=== PATIENT | female | born 1985 | race Caucasian/White ===

== ENCOUNTER 2016-05-15 19:18 | Inpatient (IN) | payer BC ==
[2016-05-15 20:43] LABS: CHLORIDE,CL 104 mmol/L (98-110); SODIUM,NA 134 mmol/L (136-146)
[2016-05-15] MEDS ORDERED: Sodium Chloride 0.9% 10 ML Syringe FLUSH PRN (20:51)
[2016-05-15] MEDS ORDERED: Lidocaine 1% 50 ML MDV INJECT PRN (20:51)
[2016-05-15] MEDS ORDERED: Nalbuphine 10 MG/1 ML Vial IVPUSH PRN (20:51)
[2016-05-15] MEDS ORDERED: Sodium Chloride 0.9% 2.5 ML Syringe FLUSH PRN (20:51)
[2016-05-15] MEDS ORDERED: Water For Irrigation,Sterile 1,000 ML Container IRR PRN (20:51)
[2016-05-15] MEDS ORDERED: Carboprost Tromethamine 250 MCG/1 ML Amp IM PRN (20:51)
[2016-05-15] MEDS ORDERED: Butorphanol 1 MG/ML SDV IVPUSH PRN (20:51)
[2016-05-15] MEDS ORDERED: Misoprostol 200 MCG Tab PO PRN (20:51)
[2016-05-15] MEDS ORDERED: Methylergonovine 0.2 MG/1 ML Amp IM PRN (20:51)
[2016-05-15] MEDS ORDERED: Oxytocin/Lactated Ringers 30 UNIT/500 ML BAG IV SCH (21:00)
[2016-05-15] MEDS ORDERED: Lactated Ringers 1,000 ML IV SCH (21:00)
[2016-05-15] MEDS: Acetaminophen 325 MG Tab PO PRN (21:40)
[2016-05-15] MEDS: Betamethasone Acetate/Betamethasone Sod Phosphate 30 MG/5 ML MDV IM SCH (21:50)
[2016-05-15] MEDS: hydrOXYzine Pamoate 25 MG Cap PO PRN (22:36)
[2016-05-15] MEDS: Pantoprazole 40 MG Tab.CR PO SCH (22:36)
--- NOTE | 2016-05-15 22:59 | HP ---
DATE OF : 1985 PRIMARY CARE PHYSICIAN: None PCP CHIEF COMPLAINT: Preeclampsia. HISTORY: This is a 31-year-old female. She is G1, P0. She is currently at 35 and 5/7th weeks' gestation with a diamniotic dichorionic twin gestation conceived on Clomid. She has been followed for preeclampsia over the past week. Her most recent 24-hour urine was in the 1200 range with otherwise normal laboratory studies. She has had worsening itching and the bile salts are still pending. She has been on home management, however, today she noted increased swelling. She feels that the left side of her face is more swollen. In general, she feels malaise. She denies a severe headache. She "just does not feel right." She reports positive movement for both fetuses. She denies any regular contractions. She has had some mild visual changes mainly with standing. No right upper quadrant or epigastric pain. PAST MEDICAL HISTORY: Significant for diagnosis of hypertension, however, she has never been on medications. SURGICAL HISTORY: None. ALLERGIES: None known. MEDICATIONS: vitamins and Tums. SOCIAL HISTORY: She is . Sexually active. Denies use of tobacco, alcohol, or street drugs. OB HISTORY: Significant for infertility. She conceived on Clomid. EDC is 06/14/2016 by a sure LMP consistent with a first trimester ultrasound. She has been followed with serial laboratory studies, serial 24-hour urine as well as biophysical profiles and regular ultrasounds to assess growth. REVIEW OF SYSTEMS: Negative for shortness of breath or chest pain. Positive for gastroesophageal reflux. Otherwise negative GI, negative derm, negative psychiatric, negative musculoskeletal except usual complaints of . Neurologic is positive for some minor visual changes, otherwise negative. PHYSICAL EXAMINATION: VITAL SIGNS: Temperature is 97.9. Blood pressure ranges systolic 137 to 156 over diastolic of 83 to 110. Pulse is 78. heart tones, baby A is 130, with moderate variability with accelerations of 15 beats per minute; baby B is 135, with moderate variability, accelerations of 15 beats per minute. [place] shows mild uterine irritability. No regular contractions. GENERAL: She is alert and oriented. She is in no acute distress. She does have some asymmetric swelling on her face, being greater on the left than the right. LUNGS: Clear bilaterally. CARDIOVASCULAR: Regular rate without murmur. ABDOMEN: Soft, gravid, nontender. There is no epigastric tenderness. She has active bowel sounds. She has no CVA tenderness. EXTREMITIES: 2+ edema bilaterally. Deep tendon reflexes are 3+ with absence of clonus. GENITOURINARY: Vaginal exam; cervix is fingertip thick and minus 1. ASSESSMENT AND PLAN: A 35 and 5/7th week intrauterine . Dichorionic diamniotic twin gestation. Mild preeclampsia. Due to visual changes and increased swelling, we will admit for inpatient observation with serial 24-hour urine, serial preeclamptic labs. At the onset of any sign of severe preeclampsia, we would proceed with delivery which at this time would be by delivery due to breech presentation of fetus A. We will proceed with monitoring daily biophysical profiles as well as an ultrasound as she is due for a growth ultrasound this week. I discussed risks and benefits of late steroids with the risks primarily being elevating the glucose level as well as maternal mood side effects with a small benefit in reduction of respiratory distress. Understanding these risks and benefits, she does desire to proceed with betamethasone for lung maturity. I will discuss plan of care with Dr. Will who comes on tomorrow morning. As long as there is no evidence of severe preeclampsia based on blood pressure readings or laboratory studies, we will continue with expectant management at this point. YAMIL / LIONEL /[id number]
[2016-05-16] MEDS: Prenatal Multivitamin and Multimineral with Iron Tab PO SCH (09:13)
[2016-05-16] MEDS: Pantoprazole 40 MG Tab.CR PO SCH (09:13)
[2016-05-16] MEDS: Betamethasone Acetate/Betamethasone Sod Phosphate 30 MG/5 ML MDV IM SCH (22:19)
[2016-05-16] MEDS: Acetaminophen 325 MG Tab PO PRN (22:19)
[2016-05-16] MEDS: hydrOXYzine Pamoate 25 MG Cap PO PRN (22:24)
[2016-05-17 09:22] LABS: CHLORIDE,CL 107 mmol/L (98-110); SODIUM,NA 136 mmol/L (136-146)
[2016-05-17] MEDS ORDERED: Sodium Chloride 0.9% 10 ML Syringe FLUSH PRN ×2 (10:02→13:38)
[2016-05-17] MEDS ORDERED: Sodium Chloride 0.9% 2.5 ML Syringe FLUSH PRN ×2 (10:02→13:38)
[2016-05-17] MEDS ORDERED: ceFAZolin 2 GM in Premix Bag 1 BAG IV ONE (10:02)
[2016-05-17] MEDS: Prenatal Multivitamin and Multimineral with Iron Tab PO SCH (10:05)
[2016-05-17] MEDS: Pantoprazole 40 MG Tab.CR PO SCH (10:06)
[2016-05-17] MEDS ORDERED: Citric Acid/Sodium Citrate Solution 30 ML Cup PO SCH (10:15)
[2016-05-17] MEDS ORDERED: Lactated Ringers 1,000 ML IV SCH ×2 (10:15→15:00)
[2016-05-17] MEDS ORDERED: Oxytocin 10 Units/1 ML SDV ONE (10:51)
[2016-05-17] MEDS ORDERED: Ondansetron 4 MG/2 ML SDV ONE (10:51)
[2016-05-17] MEDS ORDERED: Phenylephrine 1% 10 MG/ML SDV ONE (10:51)
[2016-05-17] MEDS ORDERED: Morphine PF 10 MG/10 ML SDV ONE (10:52)
--- NOTE | 2016-05-17 11:02 | PCM.PREANE ---
Preanesthetic Assessment - Anesthesia/Transfusion/Family Hx Anesthesia History: Prior Anesthesia Without Reaction Family History of Anesthesia Reaction: No Transfusion History: No Prior Transfusion(s) Additional History: 31yo F, 36 week gestation, twin , elevated urinary protein x 2 weeks, admitted yest for 24 hr urinary protein collection and BP monitoring. BP labile , now 137/77. Pt reports high of 143/88 in the last 24 hr. Meds: only vits. NKDA. Has hx of non-gestational hypertension, but has not needed meds for BP controll in the last year. 5' 6" , 255# (pre preg weight 182 #), non smoker. PSH=ORIF nasal fracture, FH=no anesthetic problems. Plan: spinal with duramorph, Magnesium gtt will be started post delivery of infants. Bicitra and Ancef are ordered to be given prior to the C section. questions answered, consent obtained. - Review of Systems General: No Symptoms Pulmonary: No Symptoms Cardiovascular: No Symptoms Gastrointestinal: No symptoms Neurological: No Symptoms Other: Reports: None - Physical Assessment Height: 1.68 m Weight: 106 kg ASA Class: 3 Mental Status: Alert & Oriented x3 Airway Class: Mallampati = 2 Dentition: Reports: Normal Dentition Lungs: Clear to auscultation, Normal respiratory effort Cardiovascular: Regular Rate, Regular Rhythm - Lab Values: Laboratory Last Values WBC 10.32 K/uL (4.0-11.0) 05/17/16 08:49 RBC 4.02 M/uL (4.30-5.90) L 05/17/16 08:49 Hgb 11.5 g/dL (12.0-16.0) L 05/17/16 08:49 Hct 34.7 % (36.0-46.0) L 05/17/16 08:49 MCV 86.3 fL (80.0-98.0) 05/17/16 08:49 MCH 28.6 pg (27.0-32.0) 05/17/16 08:49 MCHC 33.1 g/dL (31.0-37.0) 05/17/16 08:49 RDW Std Deviation 44.4 fl (28.0-62.0) 05/17/16 08:49 RDW Coeff of Dyllan 14 % (11.0-15.0) 03 08:49 Plt Count 185 K/uL (150-400) 05/17/16 08:49 MPV 13.00 fL (7.40-12.00) H 05/17/16 08:49 Neut % (Auto) 86.2 % (48.0-80.0) H 05/17/16 08:49 Lymph % (Auto) 7.8 % (16.0-40.0) L 05/17/16 08:49 Ross % (Auto) 6.0 % (0.0-15.0) 05/17/16 08:49 Eos % (Auto) 0.0 % (0.0-7.0) 05/17/16 08:49 Baso % (Auto) 0.0 % (0.0-1.5) 05/17/16 08:49 Neut # 8.9 K/uL (1.4-5.7) H 05/17/16 08:49 Lymph # 0.8 K/uL (0.6-2.4) 05/17/16 08:49 Ross # 0.6 K/uL (0.0-0.8) 05/17/16 08:49 Eos # 0.0 K/uL (0.0-0.7) 05/17/16 08:49 Baso # 0.0 K/uL (0.0-0.1) 05/17/16 08:49 Nucleated RBC % 0.0 /100WBC 05/17/16 08:49 Nucleated RBCs # 0 K/uL 05/17/16 08:49 Sodium 136 mmol/L (136-146) 05/17/16 08:49 Potassium 4.3 mmol/L (3.5-5.1) 05/17/16 08:49 Chloride 107 mmol/L (98-110) 05/17/16 08:49 Carbon Dioxide 18 mmol/L (21-31) L 05/17/16 08:49 BUN 16 mg/dL (6.0-23.0) 05/17/16 08:49 Creatinine 0.7 mg/dL (0.6-1.5) 05/17/16 08:49 Est Cr Clr Drug Dosing 109.61 mL/min 05/17/16 08:49 Estimated GFR (MDRD) > 60.0 ml/min 05/17/16 08:49 Glucose 100 mg/dL (60-110) 05/17/16 08:49 Uric Acid 6.3 mg/dL (2.1-6.2) H 05/16/16 05:10 Calcium 8.7 mg/dL (8.8-10.8) L 05/17/16 08:49 Total Bilirubin 0.3 mg/dL (0.1-1.5) 05/17/16 08:49 AST 55 IU/L (5-40) H 05/17/16 08:49 ALT 69 IU/L (8-54) H 05/17/16 08:49 Alkaline Phosphatase 192 (40-150) H 05/17/16 08:49 Lactate Dehydrogenase 198 IU/L (125-220) 05/16/16 05:10 Total Protein 6.0 g/dL (6.0-8.0) 05/17/16 08:49 Albumin 2.7 g/dL (3.5-5.0) L 05/17/16 08:49 Globulin 3.3 g/dL (2.0-3.5) 05/17/16 08:49 Albumin/Globulin Ratio 0.8 (1.3-2.8) L 05/17/16 08:49 Urine Color YELLOW 05/15/16 19:45 Urine Appearance SLT CLOUDY 05/15/16 19:45 Urine pH 7.0 (5.0-8.0) 05/15/16 19:45 Ur Specific [place] 1.010 (1.001-1.035) 05/15/16 19:45 Urine Protein 100 mg/dL (NEGATIVE) 05/15/16 19:45 Urine Glucose (UA) NEGATIVE mg/dL (NEGATIVE) 05/15/16 19:45 Urine Ketones NEGATIVE mg/dL (NEGATIVE) 05/15/16 19:45 Urine Occult Blood TRACE-INTACT (NEGATIVE) 05/15/16 19:45 Urine Nitrite NEGATIVE (NEGATIVE) 05/15/16 19:45 Urine Bilirubin NEGATIVE (NEGATIVE) 05/15/16 19:45 Urine Urobilinogen 0.2 EU/dL (<2.0) 05/15/16 19:45 Ur Leukocyte Esterase SMALL (NEGATIVE) 05/15/16 19:45 Ur Collection Duration 24 05/16/16 21:30 Urine Total Volume 1600 (800-1800) 05/16/16 21:30 Ur Total Protein Conc 233.5 mg/dL (0-14) H 05/16/16 21:30 Ur Total Protein 24 Hr 3736.0 mg/24HRS 05/16/16 21:30 Blood Type O POSITIVE 05/15/16 20:12 Antibody Screen NEGATIVE 05/15/16 20:12 - Allergies Allergies/Adverse Reactions: Allergies Allergy/AdvReac Type Severity Reaction Status Date / Time No Known Allergies Allergy Verified 04/24/16 00:16 - Blood Blood Available: Yes - Anesthesia Plan Pre-Op Medication Ordered: Antacids (Bicitra) - Acknowledgements Anesthesia Type Planned: Spinal Pt an Appropriate Candidate for the Planned Anesthesia: Yes Alternatives and Risks of Anesthesia Discussed w Pt/Guardian: Yes Pt/Guardian Understands and Agrees with Anesthesia Plan: Yes PreAnesthesia Questionnaire HEENT History: Reports: Other (see below) Other HEENT History: Nearsighted Cardiovascular History: Reports: Hypertension Gastrointestinal History: Reports: Other (see below) Other Gastrointestinal History: heartburn 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 [No Known Home Meds] 04/24/16 [History] - CURRENT (IN HOUSE) MEDS Current Meds: Current Medications Citric Acid/Sodium Citrate (Bicitra Solution) 30 ml PO .ONCE ADINA Lactated Ringer's (Ringers, Lactated) 1,000 mls @ 500 mls/hr IV .BOLUS ADINA Sodium Chloride (Saline Flush) 10 ml FLUSH ASDIRECTED PRN PRN Reason: Keep Vein Open Sodium Chloride (Saline Flush) 2.5 ml FLUSH ASDIRECTED PRN PRN Reason: Keep Vein Open Discontinued Medications Acetaminophen (Tylenol) 650 mg PO Q4H PRN PRN Reason: mild pain and fever Last Admin: 05/16/16 22:19 Dose: 650 mg Betamethasone Acet/Betameth SodPhos ([place] Soluspan 6 Mg/Ml) 12 mg IM Q24H ADINA Stop: 05/16/16 21:01 Last Admin: 05/16/16 22:19 Dose: 12 mg Butorphanol Tartrate (Stadol) 1 mg IVPUSH Q1H PRN PRN Reason: Pain Carboprost Tromethamine (Hemabate Ds) 250 mcg IM ASDIRECTED PRN PRN Reason: Post Hemorrhage Hydroxyzine Pamoate (Vistaril) 25 mg PO BEDTIME PRN PRN Reason: Insomnia Last Admin: 05/16/16 22:24 Dose: 25 mg Lactated Ringer's (Ringers, Lactated) 1,000 mls @ 150 mls/hr IV ASDIRECTED ADINA Oxytocin/Lactated Ringer's (Pitocin In Lr 30 Units/500 Ml) 30 unit in 500 mls @ 999 mls/hr IV TITRATE ADINA; 999 MUNITS/MIN PRN Reason: Protocol Stop: 05/15/16 21:31 Cefazolin Sodium/Dextrose 2 gm (/ Premix) 50 mls @ 100 mls/hr IV ONETIME ONE Stop: 05/17/16 10:31 Lidocaine HCl (Xylocaine 1%) 50 ml INJECT .ONCE PRN PRN Reason: Laceration repair Methylergonovine Maleate (Methergine) 0.2 mg IM ASDIRECTED PRN PRN Reason: Post Hemorrhage Misoprostol (Cytotec) 200 mcg PO .ONCE PRN PRN Reason: Post Hemorrhage Nalbuphine HCl (Nubain) 10 mg IVPUSH Q1H PRN PRN Reason: Pain (severe 7-10) Stop: 05/15/16 22:52 Ondansetron HCl (Zofran) Confirm Administered Dose 4 mg .ROUTE .STK-MED ONE Stop: 05/17/16 10:52 Oxytocin (Pitocin) Confirm Administered Dose 20 unit .ROUTE .STK-MED ONE Stop: 05/17/16 10:52 Pantoprazole Sodium (Protonix) 40 mg PO DAILY [facility] Last Admin: 05/17/16 10:06 Dose: Not Given Phenylephrine HCl (Kd-Synephrine) Confirm Administered Dose 10 mg .ROUTE .STK- MED ONE Stop: 05/17/16 10:52 Prenat Multivit/[place]/Iron/Folic Ac ( Mtr) 1 each PO DAILY [facility] Last Admin: 05/17/16 10:05 Dose: Not Given Sodium Chloride (Saline Flush) 10 ml FLUSH ASDIRECTED PRN PRN Reason: Keep Vein Open Sodium Chloride (Saline Flush) 2.5 ml FLUSH ASDIRECTED PRN PRN Reason: Keep Vein Open Sterile Water (Sterile Water For Irrigation) 1,000 ml IRR ASDIRECTED PRN PRN Reason: delivery Preanesthetic Assessment - PHYSICAL ASSESSMENT Height: 1.68 m Weight: 106 kg - LAB Values: Laboratory Last Values WBC 10.32 K/uL (4.0-11.0) 05/17/16 08:49 RBC 4.02 M/uL (4.30-5.90) L 05/17/16 08:49 Hgb 11.5 g/dL (12.0-16.0) L 05/17/16 08:49 Hct 34.7 % (36.0-46.0) L 05/17/16 08:49 MCV 86.3 fL (80.0-98.0) 03 08:49 MCH 28.6 pg (27.0-32.0) 05/17/16 08:49 MCHC 33.1 g/dL (31.0-37.0) 05/17/16 08:49 RDW Std Deviation 44.4 fl (28.0-62.0) 05/17/16 08:49 RDW Coeff of Dyllan 14 % (11.0-15.0) 05/17/16 08:49 Plt Count 185 K/uL (150-400) 05/17/16 08:49 MPV 13.00 fL (7.40-12.00) H 05/17/16 08:49 Neut % (Auto) 86.2 % (48.0-80.0) H 05/17/16 08:49 Lymph % (Auto) 7.8 % (16.0-40.0) L 05/17/16 08:49 Ross % (Auto) 6.0 % (0.0-15.0) 05/17/16 08:49 Eos % (Auto) 0.0 % (0.0-7.0) 05/17/16 08:49 Baso % (Auto) 0.0 % (0.0-1.5) 05/17/16 08:49 Neut # 8.9 K/uL (1.4-5.7) H 05/17/16 08:49 Lymph # 0.8 K/uL (0.6-2.4) 05/17/16 08:49 Ross # 0.6 K/uL (0.0-0.8) 05/17/16 08:49 Eos # 0.0 K/uL (0.0-0.7) 05/17/16 08:49 Baso # 0.0 K/uL (0.0-0.1) 05/17/16 08:49 Nucleated RBC % 0.0 /100WBC 05/17/16 08:49 Nucleated RBCs # 0 K/uL 05/17/16 08:49 Sodium 136 mmol/L (136-146) 05/17/16 08:49 Potassium 4.3 mmol/L (3.5-5.1) 05/17/16 08:49 Chloride 107 mmol/L (98-110) 05/17/16 08:49 Carbon Dioxide 18 mmol/L (21-31) L 05/17/16 08:49 BUN 16 mg/dL (6.0-23.0) 05/17/16 08:49 Creatinine 0.7 mg/dL (0.6-1.5) 05/17/16 08:49 Est Cr Clr Drug Dosing 109.61 mL/min 05/17/16 08:49 Estimated GFR (MDRD) > 60.0 ml/min 05/17/16 08:49 Glucose 100 mg/dL (60-110) 05/17/16 08:49 Uric Acid 6.3 mg/dL (2.1-6.2) H 05/16/16 05:10 Calcium 8.7 mg/dL (8.8-10.8) L 05/17/16 08:49 Total Bilirubin 0.3 mg/dL (0.1-1.5) 05/17/16 08:49 AST 55 IU/L (5-40) H 05/17/16 08:49 ALT 69 IU/L (8-54) H 05/17/16 08:49 Alkaline Phosphatase 192 (40-150) H 05/17/16 08:49 Lactate Dehydrogenase 198 IU/L (125-220) 05/16/16 05:10 Total Protein 6.0 g/dL (6.0-8.0) 05/17/16 08:49 Albumin 2.7 g/dL (3.5-5.0) L 05/17/16 08:49 Globulin 3.3 g/dL (2.0-3.5) 05/17/16 08:49 Albumin/Globulin Ratio 0.8 (1.3-2.8) L 05/17/16 08:49 Urine Color YELLOW 05/15/16 19:45 Urine Appearance SLT CLOUDY 05/15/16 19:45 Urine pH 7.0 (5.0-8.0) 05/15/16 19:45 Ur Specific [place] 1.010 (1.001-1.035) 05/15/16 19:45 Urine Protein 100 mg/dL (NEGATIVE) 05/15/16 19:45 Urine Glucose (UA) NEGATIVE mg/dL (NEGATIVE) 05/15/16 19:45 Urine Ketones NEGATIVE mg/dL (NEGATIVE) 05/15/16 19:45 Urine Occult Blood TRACE-INTACT (NEGATIVE) 05/15/16 19:45 Urine Nitrite NEGATIVE (NEGATIVE) 05/15/16 19:45 Urine Bilirubin NEGATIVE (NEGATIVE) 05/15/16 19:45 Urine Urobilinogen 0.2 EU/dL (<2.0) 05/15/16 19:45 Ur Leukocyte Esterase SMALL (NEGATIVE) 05/15/16 19:45 Ur Collection Duration 24 05/16/16 21:30 Urine Total Volume 1600 (800-1800) 05/16/16 21:30 Ur Total Protein Conc 233.5 mg/dL (0-14) H 05/16/16 21:30 Ur Total Protein 24 Hr 3736.0 mg/24HRS 05/16/16 21:30 Blood Type O POSITIVE 05/15/16 20:12 Antibody Screen NEGATIVE 05/15/16 20:12 - ALLERGIES Allergies/Adverse Reactions: Allergies Allergy/AdvReac Type Severity Reaction Status Date / Time No Known Allergies Allergy Verified 04/24/16 00:16
[2016-05-17] MEDS ORDERED: Midazolam 1 MG/ML 2 ML SDV ONE (13:00)
[2016-05-17] MEDS ORDERED: Acetaminophen/oxyCODONE 325-5 MG Tab PO PRN (13:05)
[2016-05-17] MEDS ORDERED: fentaNYL 100 MCG/2 ML SDV IVPUSH PRN (13:05)
[2016-05-17] MEDS ORDERED: Naloxone 0.4 MG/ML Syringe IVPUSH PRN (13:05)
[2016-05-17] MEDS ORDERED: Calcium Gluconate 10% 1 GM/10 ML SDV IV PRN (13:06)
[2016-05-17] MEDS ORDERED: Magnesium Sulfate/Water 4 GM in Premix Bag 1 BAG IV ONE (13:06)
[2016-05-17] MEDS ORDERED: Lanolin 100% Cream 7 GM Tube TOP PRN (13:38)
[2016-05-17] MEDS ORDERED: Ondansetron 4 MG/2 ML SDV IV PRN (13:38)
[2016-05-17] MEDS ORDERED: diphenhydrAMINE 50 MG/ML SDV IVPUSH PRN (13:38)
[2016-05-17] MEDS ORDERED: Bisacodyl 10 MG Supp RECTAL PRN (13:38)
[2016-05-17] MEDS: Ketorolac 30 MG/ML SDV IVPUSH SCH ×2 (13:59→22:50)
--- NOTE | 2016-05-17 14:00 | PCM.OPNOTE ---
- General Post-Op/Procedure Note Date of Surgery/Procedure: 05/17/16 Operative Procedure(s): Primary section Findings: DCDA twins, Twin A: Male, Alfonso Breech, Wt 2435 grams, Apgars 8 and 9. Twin B: Female, Cephalic, Wt 2435 grams, Apgars 6 and 9.Grossly normal placenta for both twins with 3 vessel cord. Normal uterus, tubes and ovaries Pre Op Diagnosis: 1) 36 weeks, 2) Preeclampsia 3) Cholestasis 4) Malpresentation of Twin A, breech Post-Op Diagnosis: 1) 36 weeks, 2) Preeclampsia 3) Cholestasis 4) Malpresentation of Twin A, breech Anesthesia Technique: Spinal Primary Surgeon: Portia Will Pathology: Placenta Fluid Replacement, Intraop: 1,500 Output, Urine Amount: 100 EBL in mLs: 900 Complications: None Condition: Good
--- NOTE | 2016-05-17 14:06 | PCM.POSTAN ---
POST ANESTHESIA ASSESSMENT - MENTAL STATUS Mental Status: alert, oriented - RESPIRATORY Respiratory Status: respiratory rate WNL, airway patent, O2 saturation stable - CARDIOVASCULAR CV Status: pulse rate WNL, blood pressure stable - GASTROINTESTINAL GI Status: no symptoms - PAIN Pain Score: 0 - POST OP HYDRATION Hydration Status: adequate & stable
[2016-05-17] MEDS: Magnesium Sulfate/Water 40 GM/1,000 ML BAG IV SCH (14:10)
--- NOTE | 2016-05-17 15:43 | OR ---
SURGEON: Portia Will MD DATE OF PROCEDURE: 05/17/2016 PREOPERATIVE DIAGNOSES: 1. Dichorionic diamniotic twins at 36 weeks gestation. 2. Preeclampsia. 3. Cholestasis of . 4. Mild presentation of twin A, breech. POSTOPERATIVE DIAGNOSES: 1. Dichorionic diamniotic twins at 36 weeks gestation. 2. Preeclampsia. 3. Cholestasis of . 4. Mild presentation of twin A, breech. 5. Delivered. PROCEDURE: Primary section vs Pfannenstiel ANESTHESIA: Spinal. ESTIMATED BLOOD LOSS: 900 mL. IV FLUID: 1500 mL, crystalloid. URINE OUTPUT: 100 mL, clear. COMPLICATIONS: None. DISPOSITION: Stable to recovery room. FINDINGS: Dichorionic diamniotic twins. Twin A, male, alphonso breech, weight 2435 g, score 8 and 9 at 1 and 5 minutes respectively. Twin B, female, cephalic, weight 2435 g, score 6 and 9 at 1 and 5 minutes respectively. Clear amniotic fluid for both twins. Grossly normal placenta with 3-vessel cord for both twins. Normal uterus, tubes, and ovaries. BRIEF HISTORY: Barbara is a 31-year-old, primigravida, currently 36 weeks with dichorionic diamniotic twins.She was diagnosed with preeclampsia, with normal HELLP labs and remained asymptomatic until two days ago when she was admitted with headaches and worsening swelling. On admission, then her blood pressure was labile, though not requiring antihypertensives. Her HELLP labs remained normal, with mildly elevated uric acid at 7.5. 24-hour urine protein was 3.7g. After completing late gestation steroids, decision was made to deliver the patient. During her visit, she had complained of of generalized pruritus and with elevated gall bile acids, a diagnosis of cholestasis of . DESCRIPTION OF PROCEDURE: The patient was taken to the operating room, where spinal anesthesia was performed and found to be adequate. She was then prepped and draped in dorsal supine position with a leftward tilt. SCDs in place, Buckley draining clear urine. Time-out was held. She received 2 g of Ancef. A Pfannenstiel skin incision was made with a scalpel and carried to the underlying layer of fascia with the Bovie. The fascia was scored in the midline and extended laterally with the Bovie. The superior aspect of the fascial incision was grasped with 2 Renny clamps, elevated, and underlying rectus muscle and dissected off with the Kimbrough scissors. Attention was turned to the inferior aspect of this facial incision, which in similar fashion, was grasped with Renny clamps, elevated, and rectus muscle dissected off with Kimbrough. The rectus muscles were in the midline until the parietal peritoneum was reached. This was entered sharply with Metzenbaum scissors and extended upwards and downwards with good visualization of the bladder. The peritoneal incision was further extended laterally by stretching. An Ryan self-retaining retractor was placed into the abdominal cavity. The vesicoureteral peritoneum picked up, entered sharply with the Metzenbaum scissors and a bladder flap was created digitally. The lower uterine segment was incised in transverse fashion with the scalpel. The incision was extended upwards and downwards digitally. Twin A was in alphonso breech presentation. The buttocks were lifted out of the pelvis, delivered followed by the rest of the baby using routine breech extraction techniques. The baby was vigorous and cried spontaneously at . The cord was double clamped, cut, and the infant was handed over to the waiting Nursery Team headed by the protective services officer on-call, Dr. Abraham. The amniotic sac of the second twin was ruptured, clear amniotic fluid noted, and the baby was cephalic and delivered atraumatically. She was vigorous and cried spontaneously at . Cord was double clamped and cut, she was also handed over to the Nursery Team. Cord blood and gas samples were obtained from both umbilical cords. The placentas were delivered by manual extraction. Uterine cavity was cleaned of all clots and debris.The hysterotomy was closed in 2 layers using 0 Vicryl suture, first layer was closed with running locked stitches and the second imbricating layer was performed to obtain excellent hemostasis.Two hemostatic stitches were placed with 0 Vicryl in the lower uterine segment for further hemostasis.Hysterotomy site was examined and found to be hemostatic. The gutters were cleaned of all clots and debris. The Ryan retractor was removed. Peritoneal edges were identified and the peritoneum was closed with 2-0 Vicryl suture in a running fashion. The subfascial layer was found to be hemostatic.The fascia was closed with 0-Vicryl suture in a running, nonlocked fashion. The subcuticular layer was made hemostatic with electrocautery. The skin was closed with subcuticular stitches using 4-0 Monocryl suture. Sponge, instrument, and needle counts were correct at the end of the delivery. The patient tolerated the procedure well and was taken to recovery room in stable conditions. The babies to the NICU in stable condition. ABRAHAMUMMIKAYALV / LIONEL /[id number]
--- NOTE | 2016-05-17 18:49 | PCM.PNPP ---
- General Info Date of Service: 05/17/16 Admission Dx/Problem (Free Text): POD#0 Functional Status: Reports: pain controlled, incentive spirometry, other - Review of Systems General: Denies: Fever, Chills HEENT: Denies: headaches, visual changes Pulmonary: Denies: shortness of breath, pleuritic chest pain, cough Cardiovascular: Denies: Chest Pain, Palpitations, Dyspnea on Exertion Gastrointestinal: Reports: Nausea. Denies: Abdominal pain Neurological: Reports: Headache Psychiatric: Denies: depression, mood lability - General Info Date of Service: 05/17/16 - Patient Data Vital Signs - most recent: Last Vital Signs Temp 36.2 C 05/17/16 16:00 Pulse 71 05/17/16 18:00 Resp 16 05/17/16 18:00 BP 131/64 05/17/16 18:00 Pulse Ox 96 05/17/16 18:00 Weight - most recent: 233 lb 11.04 oz I&O - last 24 hours: Intake & Output 05/17/16 05/17/16 05/17/16 06:59 14:59 22:59 Intake Total 3300 120 Output Total 200 110 Balance 3100 10 Lab Results - last 24 hrs: Laboratory Results - last 24 hr 05/16/16 05/17/16 05/17/16 Range/Units 21:30 08:49 08:49 WBC 10.32 (4.0-11.0) K/uL RBC 4.02 L (4.30-5.90) M/uL Hgb 11.5 L (12.0-16.0) g/dL Hct 34.7 L (36.0-46.0) % MCV 86.3 (80.0-98.0) fL MCH 28.6 (27.0-32.0) pg MCHC 33.1 (31.0-37.0) g/dL RDW Std Deviation 44.4 (28.0-62.0) fl RDW Coeff of Dyllan 14 (11.0-15.0) % Plt Count 185 (150-400) K/uL MPV 13.00 H (7.40-12.00) fL Neut % (Auto) 86.2 H (48.0-80.0) % Lymph % (Auto) 7.8 L (16.0-40.0) % [place] % (Auto) 6.0 (0.0-15.0) % Eos % (Auto) 0.0 (0.0-7.0) % Baso % (Auto) 0.0 (0.0-1.5) % Neut # 8.9 H (1.4-5.7) K/uL Lymph # 0.8 (0.6-2.4) K/uL [place] # 0.6 (0.0-0.8) K/uL Eos # 0.0 (0.0-0.7) K/uL Baso # 0.0 (0.0-0.1) K/uL Nucleated RBC % 0.0 /100WBC Nucleated RBCs # 0 K/uL Sodium 136 (136-146) mmol/L Potassium 4.3 (3.5-5.1) mmol/L Chloride 107 (98-110) mmol/L Carbon Dioxide 18 L (21-31) mmol/L BUN 16 (6.0-23.0) mg/dL Creatinine 0.7 (0.6-1.5) mg/dL Est Cr Clr Drug Dosing 109.61 mL/min Estimated GFR (MDRD) > 60.0 ml/min Glucose 100 (60-110) mg/dL Calcium 8.7 L (8.8-10.8) mg/dL Total Bilirubin 0.3 (0.1-1.5) mg/dL AST 55 H (5-40) IU/L ALT 69 H (8-54) IU/L Alkaline Phosphatase 192 H (40-150) Total Protein 6.0 (6.0-8.0) g/dL Albumin 2.7 L (3.5-5.0) g/dL Globulin 3.3 (2.0-3.5) g/dL Albumin/Globulin Ratio 0.8 L (1.3-2.8) Ur Collection Duration 24 Urine Total Volume 1600 (800-1800) Ur Total Protein Conc 233.5 H (0-14) mg/dL Ur Total Protein 24 Hr 3736.0 mg/24HRS Med Orders - Current: Current Medications Bisacodyl (Dulcolax) 10 mg RECTAL .ONCE PRN PRN Reason: Constipation Calcium Gluconate (Calcium Gluconate) 1 gm IV ASDIRECTED PRN PRN Reason: respiratory distress Diphenhydramine HCl (Benadryl) 25 mg IVPUSH Q6H PRN PRN Reason: Itching or Nausea Docusate Sodium (Colace) 100 mg PO BID [facility] Emollient Ointment (Lansinoh Hpa) 0 gm TOP ASDIRECTED PRN PRN Reason: Sore Nipples Fentanyl (Sublimaze) 50 mcg IVPUSH Q5M PRN PRN Reason: Pain (severe 7-10) Stop: 05/18/16 13:06 Magnesium Sulfate (Magnesium Sulfate 40 Gm In Water 1000 Ml) 40 gm in 1,000 mls @ 50 mls/hr IV ASDIRECTED [facility] PRN Reason: 2 GM/HR Last Admin: 05/17/16 14:10 Dose: 2 gm/hr, 50 mls/hr Lactated Ringer's (Ringers, Lactated) 1,000 mls @ 25 mls/hr IV ASDIRECTED [facility] PRN Reason: Protocol Last Admin: 05/17/16 15:05 Dose: 25 mls/hr Ibuprofen (Motrin) 800 mg PO Q8H PRN PRN Reason: mild pain or fever Ketorolac Tromethamine (Toradol) 30 mg IVPUSH Q6H [facility] Stop: 05/18/16 13:46 Last Admin: 05/17/16 13:59 Dose: 30 mg Naloxone HCl (Narcan) 0.1 mg IVPUSH ONETIME PRN PRN Reason: Oversedation Stop: 05/18/16 13:07 Ondansetron HCl (Zofran) 4 mg IV Q4H PRN PRN Reason: Nausea/Vomiting Oxycodone/Acetaminophen (Percocet 325-5 Mg) 2 tab PO ONETIME PRN PRN Reason: Pain (moderate 4-6) Oxycodone/Acetaminophen (Percocet 325-5 Mg) 1 tab PO Q4H PRN PRN Reason: Pain (moderate 4-6) Oxycodone/Acetaminophen (Percocet 325-5 Mg) 2 tab PO Q4H PRN PRN Reason: Pain (moderate 4-6) Sodium Chloride (Saline Flush) 10 ml FLUSH ASDIRECTED PRN PRN Reason: Keep Vein Open Sodium Chloride (Saline Flush) 2.5 ml FLUSH ASDIRECTED PRN PRN Reason: Keep Vein Open Discontinued Medications Acetaminophen (Tylenol) 650 mg PO Q4H PRN PRN Reason: mild pain and fever Last Admin: 05/16/16 22:19 Dose: 650 mg Betamethasone Acet/Betameth SodPhos (Celestone Soluspan 6 Mg/Ml) 12 mg IM Q24H [facility] Stop: 05/16/16 21:01 Last Admin: 05/16/16 22:19 Dose: 12 mg Butorphanol Tartrate (Stadol) 1 mg IVPUSH Q1H PRN PRN Reason: Pain Carboprost Tromethamine (Hemabate Ds) 250 mcg IM ASDIRECTED PRN PRN Reason: Post Hemorrhage Citric Acid/Sodium Citrate (Bicitra Solution) 30 ml PO .ONCE [facility] Last Admin: 05/17/16 11:10 Dose: 30 ml Hydroxyzine Pamoate (Vistaril) 25 mg PO BEDTIME PRN PRN Reason: Insomnia Last Admin: 05/16/16 22:24 Dose: 25 mg Lactated Ringer's (Ringers, Lactated) 1,000 mls @ 150 mls/hr IV ASDIRECTED [facility] Oxytocin/Lactated Ringer's (Pitocin In Lr 30 Units/500 Ml) 30 unit in 500 mls @ 999 mls/hr IV TITRATE [facility]; 999 MUNITS/MIN PRN Reason: Protocol Stop: 05/15/16 21:31 Cefazolin Sodium/Dextrose 2 gm (/ Premix) 50 mls @ 100 mls/hr IV ONETIME ONE Stop: 05/17/16 10:31 Lactated Ringer's (Ringers, Lactated) 1,000 mls @ 500 mls/hr IV .BOLUS [facility] Last Admin: 05/17/16 11:10 Dose: 500 mls/hr Magnesium Sulfate 4 gm/ Premix 100 mls @ 300 mls/hr IV .BOLUS ONE Stop: 05/17/16 13:25 Last Admin: 05/17/16 13:53 Dose: 300 mls/hr Lidocaine HCl (Xylocaine 1%) 50 ml INJECT .ONCE PRN PRN Reason: Laceration repair Methylergonovine Maleate (Methergine) 0.2 mg IM ASDIRECTED PRN PRN Reason: Post Hemorrhage Midazolam HCl (Versed 1 Mg/Ml) Confirm Administered Dose 2 mg .ROUTE .STK-MED ONE Stop: 05/17/16 13:01 Misoprostol (Cytotec) 200 mcg PO .ONCE PRN PRN Reason: Post Hemorrhage Morphine Sulfate (Duramorph Pf) Confirm Administered Dose 10 mg .ROUTE .STK-MED ONE Stop: 05/17/16 10:53 Nalbuphine HCl (Nubain) 10 mg IVPUSH Q1H PRN PRN Reason: Pain (severe 7-10) Stop: 05/15/16 22:52 Ondansetron HCl (Zofran) Confirm Administered Dose 4 mg .ROUTE .STK-MED ONE Stop: 05/17/16 10:52 Oxytocin (Pitocin) Confirm Administered Dose 20 unit .ROUTE .STK-MED ONE Stop: 05/17/16 10:52 Pantoprazole Sodium (Protonix) 40 mg PO DAILY [facility] Last Admin: 05/17/16 10:06 Dose: Not Given Phenylephrine HCl (Kd-Synephrine) Confirm Administered Dose 10 mg .ROUTE .STK- MED ONE Stop: 05/17/16 10:52 Prenat Multivit/Customer Advocate/Iron/Folic Ac ( Mtr) 1 each PO DAILY [facility] Last Admin: 05/17/16 10:05 Dose: Not Given Sodium Chloride (Saline Flush) 10 ml FLUSH ASDIRECTED PRN PRN Reason: Keep Vein Open Sodium Chloride (Saline Flush) 2.5 ml FLUSH ASDIRECTED PRN PRN Reason: Keep Vein Open Sodium Chloride (Saline Flush) 10 ml FLUSH ASDIRECTED PRN PRN Reason: Keep Vein Open Sodium Chloride (Saline Flush) 2.5 ml FLUSH ASDIRECTED PRN PRN Reason: Keep Vein Open Sterile Water (Sterile Water For Irrigation) 1,000 ml IRR ASDIRECTED PRN PRN Reason: delivery - Infant Interaction Infant Disposition, : to Nursery Interaction: Not Applicable Feeding: Bottle Fed Support Person: - Recovery Exam Fundal Tone: Firm Fundal Level: At Umbilicus Fundal Placement: Midline Lochia Amount: Scant Lochia Color: Rubra/Red Bladder Status: Indwelling Catheter in Place - Exam General: alert, oriented HEENT: Pupils equal Neck: supple Lungs: Clear to auscultation, Normal respiratory effort Cardiovascular: Regular Rate, Regular Rhythm Abdomen: bowel sounds present, soft, no tenderness, no distension Extremities: no calf tenderness, edema (+ 2, pitting bilateral) Skin: warm Wound/Incisions: dressing dry and intact Neurological: no new focal deficit, reflexes equal bilateral (+2, no clonus) Psy/Mental Status: alert, normal affect, normal mood - Problem List & Annotations (1) delivery delivered SNOMED Code(s): 761576080 Code(s): O82 - ENCOUNTER FOR DELIVERY WITHOUT INDICATION Status: Acute Current Visit: Yes (2) Preeclampsia SNOMED Code(s): 132312013 Code(s): O14.90 - UNSPECIFIED PRE-ECLAMPSIA, UNSPECIFIED TRIMESTER Status: Acute Current Visit: Yes - Problem List Review Problem List Initiated/Reviewed/Updated: Yes - My Orders Last 24 Hours: My Active Orders 05/17/16 10:02 Non Stress Test [RC] PER UNIT ROUTINE Procedure Site Prep Instruct [RC] ASDIRECTED Up ad Renetta [RC] ASDIRECTED Verify Patient Consent Obtain [RC] ASDIRECTED Vital Signs [RC] PER UNIT ROUTINE 05/17/16 10:04 Notify Provider Vital Signs [RC] PRN 05/17/16 13:06 Patient Status [ADT] Routine Bedrest [RC] ASDIRECTED Communication Order [RC] PRN Height and Weight [RC] DAILY Intake and Output [RC] QSHIFT Notify Provider [RC] PRN Oxygen Therapy [RC] PRN Calcium Gluconate 1 gm IV ASDIRECTED PRN Electronic Heart Tones Ext w TOCO [WOMSER] Per Unit Routine 05/17/16 13:07 Equipment to Bedside [RC] PRN 05/17/16 13:08 Notify Provider Status Change [RC] ASDIRECTED 05/17/16 13:15 Deep Tendon Reflexes [WOMSER] Q1H 05/17/16 13:38 Ambulate [RC] PER UNIT ROUTINE Communication Order [RC] PER UNIT ROUTINE Communication Order [RC] PER UNIT ROUTINE Communication Order [RC] Per Unit Routine May Shower [RC] ASDIRECTED RT Incentive Spirometry [RC] Q2HWA Urinary Catheter Removal [RC] Per Unit Routine Vital Signs [RC] PER UNIT ROUTINE Acetaminophen/oxyCODONE [Percocet 325-5 MG] 1 tab PO Q4H PRN Acetaminophen/oxyCODONE [Percocet 325-5 MG] 2 tab PO Q4H PRN Bisacodyl [Dulcolax] 10 mg RECTAL .ONCE PRN Ibuprofen [Motrin] 800 mg PO Q8H PRN Lanolin [Lansinoh HPA] See Dose Instructions TOP ASDIRECTED PRN Ondansetron [Zofran] 4 mg IV Q4H PRN Sodium Chloride 0.9% [Saline Flush] 10 ml FLUSH ASDIRECTED PRN Sodium Chloride 0.9% [Saline Flush] 2.5 ml FLUSH ASDIRECTED PRN diphenhydrAMINE [Benadryl] 25 mg IVPUSH Q6H PRN Abdominal Binder [OM.PC] Routine Assess Lochia [WOMSER] Per Unit Routine Assess Uterine Involution [WOMSER] Per Unit Routine Breast Pump [WOMSER] Per Unit Routine Peripheral IV Discontinue [OM.PC] Routine Saline Lock Insert [OM.PC] Routine Sequential Compression Device [OM.PC] Per Unit Routine 05/17/16 13:40 Antiembolic Devices [RC] PER UNIT ROUTINE Notify Provider Vital Signs [RC] ASDIRECTED 05/17/16 13:41 Notify Provider Intake and Out [RC] ASDIRECTED 05/17/16 13:45 Ketorolac [Toradol] 30 mg IVPUSH Q6H 05/17/16 14:00 Magnesium Sulfate/Water [Magnesium Sulfate 40 GM in Water 1000 ML] 40 gm in 1, 000 ml IV ASDIRECTED 05/17/16 14:15 Deep Tendon Reflexes [WOMSER] Q1H 05/17/16 15:00 Lactated Ringers [Ringers, Lactated] 1,000 ml IV ASDIRECTED 05/17/16 15:15 Deep Tendon Reflexes [WOMSER] Q1H 05/17/16 16:15 Deep Tendon Reflexes [WOMSER] Q1H 05/17/16 17:15 Deep Tendon Reflexes [WOMSER] Q1H 05/17/16 18:10 MAGNESIUM [CHEM] Routine 05/17/16 18:15 Deep Tendon Reflexes [WOMSER] Q1H 05/17/16 19:15 Deep Tendon Reflexes [WOMSER] Q1H 05/17/16 20:15 Deep Tendon Reflexes [WOMSER] Q1H 05/17/16 21:00 Docusate Sodium [Colace] 100 mg PO BID 05/17/16 21:15 Deep Tendon Reflexes [WOMSER] Q1H 05/17/16 22:15 Deep Tendon Reflexes [WOMSER] [facility] 05/17/16 23:15 Deep Tendon Reflexes [WOMSER] [facility] 05/17/16 Dinner Nothing Per Oral Diet [DIET] 05/18/16 00:00 MAGNESIUM [CHEM] Routine 05/18/16 00:15 Deep Tendon Reflexes [WOMSER] [facility] 05/18/16 01:15 Deep Tendon Reflexes [WOMSER] [facility] 05/18/16 02:15 Deep Tendon Reflexes [WOMSER] [facility] 05/18/16 03:15 Deep Tendon Reflexes [WOMSER] [facility] 05/18/16 04:15 Deep Tendon Reflexes [WOMSER] [facility] 05/18/16 05:11 CBC W/O DIFF,HEMOGRAM [HEME] COMPREHENSIVE METABOLIC PN,CMP [CHEM] AM 05/18/16 05:15 Deep Tendon Reflexes [WOMSER] [facility] 05/18/16 06:00 MAGNESIUM [CHEM] Routine 05/18/16 06:15 Deep Tendon Reflexes [WOMSER] [facility] 05/18/16 07:15 Deep Tendon Reflexes [WOMSER] [facility] 05/18/16 08:15 Deep Tendon Reflexes [WOMSER] [facility] 05/18/16 09:15 Deep Tendon Reflexes [WOMSER] [facility] 05/18/16 10:15 Deep Tendon Reflexes [WOMSER] [facility] 05/18/16 11:15 Deep Tendon Reflexes [WOMSER] [facility] 05/18/16 12:00 MAGNESIUM [CHEM] Routine 05/18/16 12:15 Deep Tendon Reflexes [WOMSER] Q1H - Assessment Assessment:: POD#0, s/p Primary C/S at 36 weeks for preeclampsia with malpresentation of Twin A. Currently on MgSO4, tolerating it well. Asymptomatic for S/S of preecalmpsia. Pain well controlled on duramorph. BP normotensive. UO adequate The Twins are doing well in NICU - Plan Plan:: Continue MgSO4 with fluid restrictions and preeclampsia precautions. 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
[2016-05-17] MEDS: Docusate Sodium 100 MG Cap PO SCH (22:50)
[2016-05-18] MEDS: Ketorolac 30 MG/ML SDV IVPUSH SCH ×3 (03:44→15:14)
[2016-05-18 06:54] LABS: CHLORIDE,CL 104 mmol/L (98-110); SODIUM,NA 135 mmol/L (136-146)
--- NOTE | 2016-05-18 07:59 | PCM48HPAN ---
Post Anesthesia Note - EVALUATION WITHIN 48HRS OF ANESTHETIC Vital Signs in Normal Range: Yes Patient Participated in Evaluation: Yes Respiratory Function Stable: Yes Airway Patent: Yes Cardiovascular Function Stable: Yes Hydration Status Stable: Yes Pain Control Satisfactory: Yes Nausea and Vomiting Control Satisfactory: Yes Mental Status Recovered: Yes
--- NOTE | 2016-05-18 08:47 | PCM.PNPP ---
- General Info Date of Service: 05/18/16 Admission Dx/Problem (Free Text): POD#1 Functional Status: Reports: pain controlled, tolerating diet (Clears ) - Review of Systems General: Denies: Fever, Malaise, Chills HEENT: Denies: headaches, visual changes Pulmonary: Denies: shortness of breath, pleuritic chest pain, cough Cardiovascular: Denies: Chest Pain, Palpitations, Dyspnea on Exertion Gastrointestinal: Denies: Abdominal pain, Nausea, Vomiting Genitourinary: Denies: dysuria, flank pain Neurological: Denies: Dizziness, Headache Psychiatric: Denies: depression, mood lability, anxiety - General Info Date of Service: 05/18/16 - Patient Data Vital Signs - most recent: Last Vital Signs Temp 36.3 C 05/18/16 06:00 Pulse 67 05/18/16 06:47 Resp 16 05/18/16 06:47 BP 145/87 H 05/18/16 06:47 Pulse Ox 96 05/18/16 06:47 Weight - most recent: 233 lb 11.04 oz I&O - last 24 hours: Intake & Output 05/17/16 05/18/16 05/18/16 22:59 06:59 14:59 Intake Total 120 1229 Output Total 110 1175 Balance 10 54 Lab Results - last 24 hrs: Laboratory Results - last 24 hr 05/17/16 05/17/16 05/17/16 Range/Units 08:49 08:49 18:10 WBC 10.32 (4.0-11.0) K/uL RBC 4.02 L (4.30-5.90) M/uL Hgb 11.5 L (12.0-16.0) g/dL Hct 34.7 L (36.0-46.0) % MCV 86.3 (80.0-98.0) fL MCH 28.6 (27.0-32.0) pg MCHC 33.1 (31.0-37.0) g/dL RDW Std Deviation 44.4 (28.0-62.0) fl RDW Coeff of Dyllan 14 (11.0-15.0) % Plt Count 185 (150-400) K/uL MPV 13.00 H (7.40-12.00) fL Neut % (Auto) 86.2 H (48.0-80.0) % Lymph % (Auto) 7.8 L (16.0-40.0) % Mcpherson % (Auto) 6.0 (0.0-15.0) % Eos % (Auto) 0.0 (0.0-7.0) % Baso % (Auto) 0.0 (0.0-1.5) % Neut # 8.9 H (1.4-5.7) K/uL Lymph # 0.8 (0.6-2.4) K/uL Mcpherson # 0.6 (0.0-0.8) K/uL Eos # 0.0 (0.0-0.7) K/uL Baso # 0.0 (0.0-0.1) K/uL Nucleated RBC % 0.0 /100WBC Nucleated RBCs # 0 K/uL Sodium 136 (136-146) mmol/L Potassium 4.3 (3.5-5.1) mmol/L Chloride 107 (98-110) mmol/L Carbon Dioxide 18 L (21-31) mmol/L BUN 16 (6.0-23.0) mg/dL Creatinine 0.7 (0.6-1.5) mg/dL Est Cr Clr Drug Dosing 109.61 mL/min Estimated GFR (MDRD) > 60.0 ml/min Glucose 100 (60-110) mg/dL Calcium 8.7 L (8.8-10.8) mg/dL Magnesium 3.7 H (1.5-2.3) mEq/L Total Bilirubin 0.3 (0.1-1.5) mg/dL AST 55 H (5-40) IU/L ALT 69 H (8-54) IU/L Alkaline Phosphatase 192 H (40-150) Total Protein 6.0 (6.0-8.0) g/dL Albumin 2.7 L (3.5-5.0) g/dL Globulin 3.3 (2.0-3.5) g/dL Albumin/Globulin Ratio 0.8 L (1.3-2.8) 05/18/16 05/18/16 05/18/16 Range/Units 00:15 06:16 06:16 WBC 13.05 H (4.0-11.0) K/uL RBC 3.62 L (4.30-5.90) M/uL Hgb 10.4 L (12.0-16.0) g/dL Hct 31.8 L (36.0-46.0) % MCV 87.8 (80.0-98.0) fL MCH 28.7 (27.0-32.0) pg MCHC 32.7 (31.0-37.0) g/dL RDW Std Deviation 46.2 (28.0-62.0) fl RDW Coeff of Dyllan 15 (11.0-15.0) % Plt Count 199 (150-400) K/uL MPV 12.40 H (7.40-12.00) fL Neut % (Auto) (48.0-80.0) % Lymph % (Auto) (16.0-40.0) % Mcpherson % (Auto) (0.0-15.0) % Eos % (Auto) (0.0-7.0) % Baso % (Auto) (0.0-1.5) % Neut # (1.4-5.7) K/uL Lymph # (0.6-2.4) K/uL Mcpherson # (0.0-0.8) K/uL Eos # (0.0-0.7) K/uL Baso # (0.0-0.1) K/uL Nucleated RBC % 0.3 /100WBC Nucleated RBCs # 0 K/uL Sodium 135 L (136-146) mmol/L Potassium 4.1 (3.5-5.1) mmol/L Chloride 104 (98-110) mmol/L Carbon Dioxide 23 (21-31) mmol/L BUN 15 (6.0-23.0) mg/dL Creatinine 0.7 (0.6-1.5) mg/dL Est Cr Clr Drug Dosing 109.61 mL/min Estimated GFR (MDRD) > 60.0 ml/min Glucose 97 (60-110) mg/dL Calcium 7.2 L (8.8-10.8) mg/dL Magnesium 4.0 H (1.5-2.3) mEq/L Total Bilirubin 0.2 (0.1-1.5) mg/dL AST 120 H (5-40) IU/L ALT 167 H (8-54) IU/L Alkaline Phosphatase 168 H (40-150) Total Protein 5.8 L (6.0-8.0) g/dL Albumin 2.6 L (3.5-5.0) g/dL Globulin 3.2 (2.0-3.5) g/dL Albumin/Globulin Ratio 0.8 L (1.3-2.8) 05/18/16 Range/Units 06:16 WBC (4.0-11.0) K/uL RBC (4.30-5.90) M/uL Hgb (12.0-16.0) g/dL Hct (36.0-46.0) % MCV (80.0-98.0) fL MCH (27.0-32.0) pg MCHC (31.0-37.0) g/dL RDW Std Deviation (28.0-62.0) fl RDW Coeff of Dyllan (11.0-15.0) % Plt Count (150-400) K/uL MPV (7.40-12.00) fL Neut % (Auto) (48.0-80.0) % Lymph % (Auto) (16.0-40.0) % Mcpherson % (Auto) (0.0-15.0) % Eos % (Auto) (0.0-7.0) % Baso % (Auto) (0.0-1.5) % Neut # (1.4-5.7) K/uL Lymph # (0.6-2.4) K/uL Mcpherson # (0.0-0.8) K/uL Eos # (0.0-0.7) K/uL Baso # (0.0-0.1) K/uL Nucleated RBC % /100WBC Nucleated RBCs # K/uL Sodium (136-146) mmol/L Potassium (3.5-5.1) mmol/L Chloride (98-110) mmol/L Carbon Dioxide (21-31) mmol/L BUN (6.0-23.0) mg/dL Creatinine (0.6-1.5) mg/dL Est Cr Clr Drug Dosing mL/min Estimated GFR (MDRD) ml/min Glucose (60-110) mg/dL Calcium (8.8-10.8) mg/dL Magnesium 4.9 H (1.5-2.3) mEq/L Total Bilirubin (0.1-1.5) mg/dL AST (5-40) IU/L ALT (8-54) IU/L Alkaline Phosphatase (40-150) Total Protein (6.0-8.0) g/dL Albumin (3.5-5.0) g/dL Globulin (2.0-3.5) g/dL Albumin/Globulin Ratio (1.3-2.8) Med Orders - Current: Current Medications Bisacodyl (Dulcolax) 10 mg RECTAL .ONCE PRN PRN Reason: Constipation Calcium Gluconate (Calcium Gluconate) 1 gm IV ASDIRECTED PRN PRN Reason: respiratory distress Diphenhydramine HCl (Benadryl) 25 mg IVPUSH Q6H PRN PRN Reason: Itching or Nausea Docusate Sodium (Colace) 100 mg PO BID [facility] Last Admin: 05/17/16 22:50 Dose: 100 mg Emollient Ointment (Lansinoh Hpa) 0 gm TOP ASDIRECTED PRN PRN Reason: Sore Nipples Fentanyl (Sublimaze) 50 mcg IVPUSH Q5M PRN PRN Reason: Pain (severe 7-10) Stop: 05/18/16 13:06 Magnesium Sulfate (Magnesium Sulfate 40 Gm In Water 1000 Ml) 40 gm in 1,000 mls @ 50 mls/hr IV ASDIRECTED [facility] PRN Reason: 2 GM/HR Last Admin: 05/17/16 14:10 Dose: 2 gm/hr, 50 mls/hr Lactated Ringer's (Ringers, Lactated) 1,000 mls @ 25 mls/hr IV ASDIRECTED [facility] PRN Reason: Protocol Last Admin: 05/17/16 15:05 Dose: 25 mls/hr Ibuprofen (Motrin) 800 mg PO Q8H PRN PRN Reason: mild pain or fever Ketorolac Tromethamine (Toradol) 30 mg IVPUSH Q6H [facility] Stop: 05/18/16 13:46 Last Admin: 05/18/16 03:44 Dose: 30 mg Naloxone HCl (Narcan) 0.1 mg IVPUSH ONETIME PRN PRN Reason: Oversedation Stop: 05/18/16 13:07 Ondansetron HCl (Zofran) 4 mg IV Q4H PRN PRN Reason: Nausea/Vomiting Oxycodone/Acetaminophen (Percocet 325-5 Mg) 2 tab PO ONETIME PRN PRN Reason: Pain (moderate 4-6) Oxycodone/Acetaminophen (Percocet 325-5 Mg) 1 tab PO Q4H PRN PRN Reason: Pain (moderate 4-6) Oxycodone/Acetaminophen (Percocet 325-5 Mg) 2 tab PO Q4H PRN PRN Reason: Pain (moderate 4-6) Sodium Chloride (Saline Flush) 10 ml FLUSH ASDIRECTED PRN PRN Reason: Keep Vein Open Sodium Chloride (Saline Flush) 2.5 ml FLUSH ASDIRECTED PRN PRN Reason: Keep Vein Open Discontinued Medications Acetaminophen (Tylenol) 650 mg PO Q4H PRN PRN Reason: mild pain and fever Last Admin: 05/16/16 22:19 Dose: 650 mg Betamethasone Acet/Betameth SodPhos (Celestone Soluspan 6 Mg/Ml) 12 mg IM Q24H ADINA Stop: 05/16/16 21:01 Last Admin: 05/16/16 22:19 Dose: 12 mg Butorphanol Tartrate (Stadol) 1 mg IVPUSH Q1H PRN PRN Reason: Pain Carboprost Tromethamine (Hemabate Ds) 250 mcg IM ASDIRECTED PRN PRN Reason: Post Hemorrhage Citric Acid/Sodium Citrate (Bicitra Solution) 30 ml PO .ONCE ADINA Last Admin: 05/17/16 11:10 Dose: 30 ml Hydroxyzine Pamoate (Vistaril) 25 mg PO BEDTIME PRN PRN Reason: Insomnia Last Admin: 05/16/16 22:24 Dose: 25 mg Lactated Ringer's (Ringers, Lactated) 1,000 mls @ 150 mls/hr IV ASDIRECTED ADINA Oxytocin/Lactated Ringer's (Pitocin In Lr 30 Units/500 Ml) 30 unit in 500 mls @ 999 mls/hr IV TITRATE ADINA; 999 MUNITS/MIN PRN Reason: Protocol Stop: 05/15/16 21:31 Cefazolin Sodium/Dextrose 2 gm (/ Premix) 50 mls @ 100 mls/hr IV ONETIME ONE Stop: 05/17/16 10:31 Lactated Ringer's (Ringers, Lactated) 1,000 mls @ 500 mls/hr IV .BOLUS [facility] Last Admin: 05/17/16 11:10 Dose: 500 mls/hr Magnesium Sulfate 4 gm/ Premix 100 mls @ 300 mls/hr IV .BOLUS ONE Stop: 05/17/16 13:25 Last Admin: 05/17/16 13:53 Dose: 300 mls/hr Lidocaine HCl (Xylocaine 1%) 50 ml INJECT .ONCE PRN PRN Reason: Laceration repair Methylergonovine Maleate (Methergine) 0.2 mg IM ASDIRECTED PRN PRN Reason: Post Hemorrhage Midazolam HCl (Versed 1 Mg/Ml) Confirm Administered Dose 2 mg .ROUTE .STK-MED ONE Stop: 05/17/16 13:01 Misoprostol (Cytotec) 200 mcg PO .ONCE PRN PRN Reason: Post Hemorrhage Morphine Sulfate (Duramorph Pf) Confirm Administered Dose 10 mg .ROUTE .STK-MED ONE Stop: 05/17/16 10:53 Nalbuphine HCl (Nubain) 10 mg IVPUSH Q1H PRN PRN Reason: Pain (severe 7-10) Stop: 05/15/16 22:52 Ondansetron HCl (Zofran) Confirm Administered Dose 4 mg .ROUTE .STK-MED ONE Stop: 05/17/16 10:52 Oxytocin (Pitocin) Confirm Administered Dose 20 unit .ROUTE .STK-MED ONE Stop: 05/17/16 10:52 Pantoprazole Sodium (Protonix) 40 mg PO DAILY [facility] Last Admin: 05/17/16 10:06 Dose: Not Given Phenylephrine HCl (Kd-Synephrine) Confirm Administered Dose 10 mg .ROUTE .STK- MED ONE Stop: 05/17/16 10:52 Prenat Multivit/Branch [employer]er/Iron/Folic Ac ( Mtr) 1 each PO DAILY [facility] Last Admin: 05/17/16 10:05 Dose: Not Given Sodium Chloride (Saline Flush) 10 ml FLUSH ASDIRECTED PRN PRN Reason: Keep Vein Open Sodium Chloride (Saline Flush) 2.5 ml FLUSH ASDIRECTED PRN PRN Reason: Keep Vein Open Sodium Chloride (Saline Flush) 10 ml FLUSH ASDIRECTED PRN PRN Reason: Keep Vein Open Sodium Chloride (Saline Flush) 2.5 ml FLUSH ASDIRECTED PRN PRN Reason: Keep Vein Open Sterile Water (Sterile Water For Irrigation) 1,000 ml IRR ASDIRECTED PRN PRN Reason: delivery - Interaction Infant Disposition, : to Nursery Infant Interaction: Not Applicable Feeding: Bottle Fed Infant Support Person: - Recovery Exam Fundal Tone: Firm Fundal Level: 1 Fingerbreadths Below Umbilicus Fundal Placement: Midline Lochia Amount: Scant Lochia Color: Rubra/Red Perineum Description: Intact, Minimal Bruising/Swelling Bladder Status: Indwelling Catheter in Place Urinary Elimination: Indwelling Catheter - Exam General: alert, oriented Lungs: Clear to auscultation, Normal respiratory effort Cardiovascular: Regular Rate, Regular Rhythm Abdomen: bowel sounds present, soft, no tenderness, no distension Extremities: no calf tenderness, edema (+2, bilateral pitting) Skin: warm Wound/Incisions: healing well Neurological: no new focal deficit, reflexes equal bilateral (+1, no clonus) Psy/Mental Status: alert, normal affect, normal mood - Problem List & Annotations (1) delivery delivered SNOMED Code(s): 071491550 Code(s): O82 - ENCOUNTER FOR DELIVERY WITHOUT INDICATION Status: Acute Current Visit: Yes (2) Preeclampsia SNOMED Code(s): 112129601 Code(s): O14.90 - UNSPECIFIED PRE-ECLAMPSIA, UNSPECIFIED TRIMESTER Status: Acute Current Visit: Yes - Problem List Review Problem List Initiated/Reviewed/Updated: Yes - My Orders Last 24 Hours: My Active Orders 05/17/16 10:02 Non Stress Test [RC] PER UNIT ROUTINE Procedure Site Prep Instruct [RC] ASDIRECTED Up ad Renetta [RC] ASDIRECTED Verify Patient Consent Obtain [RC] ASDIRECTED Vital Signs [RC] PER UNIT ROUTINE 05/17/16 10:04 Notify Provider Vital Signs [RC] PRN 05/17/16 13:06 Patient Status [ADT] Routine Bedrest [RC] ASDIRECTED Communication Order [RC] PRN Height and Weight [RC] DAILY Intake and Output [RC] QSHIFT Notify Provider [RC] PRN Oxygen Therapy [RC] PRN Calcium Gluconate 1 gm IV ASDIRECTED PRN Electronic Heart Tones Ext w TOCO [WOMSER] Per Unit Routine 05/17/16 13:07 Equipment to Bedside [RC] PRN 05/17/16 13:08 Notify Provider Status Change [RC] ASDIRECTED 05/17/16 13:15 Deep Tendon Reflexes [WOMSER] Q1H 05/17/16 13:38 Ambulate [RC] PER UNIT ROUTINE Communication Order [RC] PER UNIT ROUTINE Communication Order [RC] PER UNIT ROUTINE Communication Order [RC] Per Unit Routine May Shower [RC] ASDIRECTED RT Incentive Spirometry [RC] Q2HWA Urinary Catheter Removal [RC] Per Unit Routine Vital Signs [RC] PER UNIT ROUTINE Acetaminophen/oxyCODONE [Percocet 325-5 MG] 1 tab PO Q4H PRN Acetaminophen/oxyCODONE [Percocet 325-5 MG] 2 tab PO Q4H PRN Bisacodyl [Dulcolax] 10 mg RECTAL .ONCE PRN Ibuprofen [Motrin] 800 mg PO Q8H PRN Lanolin [Lansinoh HPA] See Dose Instructions TOP ASDIRECTED PRN Ondansetron [Zofran] 4 mg IV Q4H PRN Sodium Chloride 0.9% [Saline Flush] 10 ml FLUSH ASDIRECTED PRN Sodium Chloride 0.9% [Saline Flush] 2.5 ml FLUSH ASDIRECTED PRN diphenhydrAMINE [Benadryl] 25 mg IVPUSH Q6H PRN Abdominal Binder [OM.PC] Routine Assess Lochia [WOMSER] Per Unit Routine Assess Uterine Involution [WOMSER] Per Unit Routine Breast Pump [WOMSER] Per Unit Routine Peripheral IV Discontinue [OM.PC] Routine Saline Lock Insert [OM.PC] Routine Sequential Compression Device [OM.PC] Per Unit Routine 05/17/16 13:40 Antiembolic Devices [RC] PER UNIT ROUTINE Notify Provider Vital Signs [RC] ASDIRECTED 05/17/16 13:41 Notify Provider Intake and Out [RC] ASDIRECTED 05/17/16 13:45 Ketorolac [Toradol] 30 mg IVPUSH Q6H 05/17/16 14:00 Magnesium Sulfate/Water [Magnesium Sulfate 40 GM in Water 1000 ML] 40 gm in 1, 000 ml IV ASDIRECTED 05/17/16 14:15 Deep Tendon Reflexes [WOMSER] Q1H 05/17/16 15:00 Lactated Ringers [Ringers, Lactated] 1,000 ml IV ASDIRECTED 05/17/16 15:15 Deep Tendon Reflexes [WOMSER] Q1 05/17/16 16:15 Deep Tendon Reflexes [WOMSER] Q1 05/17/16 17:15 Deep Tendon Reflexes [WOMSER] Q1 05/17/16 18:15 Deep Tendon Reflexes [WOMSER] Q1 05/17/16 19:15 Deep Tendon Reflexes [WOMSER] Q1 05/17/16 20:15 Deep Tendon Reflexes [WOMSER] Q1 05/17/16 21:00 Docusate Sodium [Colace] 100 mg PO BID 05/17/16 21:15 Deep Tendon Reflexes [WOMSER] Q1 05/17/16 22:15 Deep Tendon Reflexes [WOMSER] Q1 05/17/16 23:15 Deep Tendon Reflexes [WOMSER] Q1 05/17/16 Dinner Nothing Per Oral Diet [DIET] 05/18/16 00:15 Deep Tendon Reflexes [WOMSER] [facility] 05/18/16 01:15 Deep Tendon Reflexes [WOMSER] [facility] 05/18/16 02:15 Deep Tendon Reflexes [WOMSER] [facility] 05/18/16 03:15 Deep Tendon Reflexes [WOMSER] [facility] 05/18/16 04:15 Deep Tendon Reflexes [WOMSER] [facility] 05/18/16 05:15 Deep Tendon Reflexes [WOMSER] [facility] 05/18/16 06:15 Deep Tendon Reflexes [WOMSER] [facility] 05/18/16 07:15 Deep Tendon Reflexes [WOMSER] [facility] 05/18/16 08:15 Deep Tendon Reflexes [WOMSER] [facility] 05/18/16 09:15 Deep Tendon Reflexes [WOMSER] [facility] 05/18/16 10:15 Deep Tendon Reflexes [WOMSER] [facility] 05/18/16 11:15 Deep Tendon Reflexes [WOMSER] [facility] 05/18/16 12:00 MAGNESIUM [CHEM] Routine 05/18/16 12:15 Deep Tendon Reflexes [WOMSER] Q1H - Assessment Assessment:: POD#1, s/p Primary C/S at 36 weeks for preeclampsia with malpresentation of Twin A. Currently on MgSO4, tolerating it well. Asymptomatic for S/S of preecalmpsia. Pain well controlled. Lochia minimal. BP labile. UO adequate. LFT elevated: [id number], ALT 167. Normal plts and hemoglobin. Mg level: 4.7 The Twins are doing well in NICU - Plan Plan:: Doing well clinically. Will continue MgSO4 with fluid restrictions and preeclampsia precautions. Weigh this am. Review later this evening and decide on stopping MgSO4.
[2016-05-18] MEDS: Magnesium Sulfate/Water 40 GM/1,000 ML BAG IV SCH (09:57)
[2016-05-18] MEDS: Docusate Sodium 100 MG Cap PO SCH ×2 (09:57→21:14)
--- NOTE | 2016-05-18 19:08 | PCM.SN ---
- Free Text/Narrative Note: Patient denies headaches, visual disturbances or epigastric pain. Denies chest pain or SOB. Feeling flushed and lethargic on MgSO4. BP: 145/89( 130-150/90's) Chest: CTAB/L CVS: S1+S2+ 0 Abdomen: Soft, No RUQ tenderness, non-tender uterus below the umbilicus. Incision dry. Ext: + 2 edema. +1 DTR, no clonus MgS04 level 4.1 Assessment: 31 yo s/p Primary C/S at 36 weeks for preeclampsia, currently on MagSO4 and asymptomatic. Plan: Stop MgSo4 Remove bernal OOB--> ambulate Regular diet and oral fluid intake CMP and CBC in the am. Labetalol 100mg BID PRN for SBP>=160 or DBP >=100mmhg
[2016-05-18] MEDS ORDERED: Labetalol 100 MG Tab PO PRN (19:09)
[2016-05-18] MEDS: Ibuprofen 800 MG Tab PO PRN (21:14)
[2016-05-18] MEDS ORDERED: Temazepam 15 MG Cap PO ONE (22:00)
[2016-05-18] MEDS: Acetaminophen/oxyCODONE 325-5 MG Tab PO PRN (22:40)
[2016-05-19] MEDS: Acetaminophen/oxyCODONE 325-5 MG Tab PO PRN ×5 (04:31→22:29)
[2016-05-19] MEDS: Ibuprofen 800 MG Tab PO PRN ×2 (05:48→14:36)
[2016-05-19 05:53] LABS: CHLORIDE,CL 105 mmol/L (98-110); SODIUM,NA 137 mmol/L (136-146)
[2016-05-19] MEDS ORDERED: Furosemide 20 MG/2 ML VIAL IVPUSH ONE (06:10)
[2016-05-19] MEDS: Docusate Sodium 100 MG Cap PO SCH ×2 (09:10→22:29)
--- NOTE | 2016-05-19 10:09 | PCM.PNPP ---
- General Info Date of Service: 05/19/16 Admission Dx/Problem (Free Text): POD#2 Functional Status: Reports: pain controlled, tolerating diet, ambulating, urinating - Review of Systems General: Denies: Fever, Weakness, Fatigue, Chills HEENT: Denies: headaches Pulmonary: Denies: shortness of breath, pleuritic chest pain Cardiovascular: Denies: Chest Pain, Palpitations, Dyspnea on Exertion Gastrointestinal: Denies: Abdominal pain Genitourinary: Denies: dysuria, incontinence, flank pain Psychiatric: Denies: depression, mood lability, anxiety - General Info Date of Service: 05/19/16 - Patient Data Vital Signs - most recent: Last Vital Signs Temp 36.8 C 05/19/16 08:37 Pulse 87 05/19/16 08:37 Resp 18 05/19/16 08:37 BP 154/79 H 05/19/16 08:37 Pulse Ox 97 05/19/16 08:37 Weight - most recent: 223 lb I&O - last 24 hours: Intake & Output 05/18/16 05/19/16 05/19/16 22:59 06:59 14:59 Intake Total 2030 400 Output Total 1585 1500 Balance 445 -1100 Lab Results - last 24 hrs: Laboratory Results - last 24 hr 05/18/16 05/18/16 05/19/16 Range/Units 12:04 17:58 05:14 WBC 14.02 H (4.0-11.0) K/uL RBC 3.38 L (4.30-5.90) M/uL Hgb 9.8 L (12.0-16.0) g/dL Hct 29.7 L (36.0-46.0) % MCV 87.9 (80.0-98.0) fL MCH 29.0 (27.0-32.0) pg MCHC 33.0 (31.0-37.0) g/dL RDW Std Deviation 47.1 (28.0-62.0) fl RDW Coeff of Dyllan 15 (11.0-15.0) % Plt Count 200 (150-400) K/uL MPV 11.90 (7.40-12.00) fL Nucleated RBC % 0.6 /100WBC Nucleated RBCs # 0 K/uL Sodium (136-146) mmol/L Potassium (3.5-5.1) mmol/L Chloride (98-110) mmol/L Carbon Dioxide (21-31) mmol/L BUN (6.0-23.0) mg/dL Creatinine (0.6-1.5) mg/dL Est Cr Clr Drug Dosing mL/min Estimated GFR (MDRD) ml/min Glucose (60-110) mg/dL Calcium (8.8-10.8) mg/dL Magnesium 4.1 H 4.1 H (1.5-2.3) mEq/L Total Bilirubin (0.1-1.5) mg/dL AST (5-40) IU/L ALT (8-54) IU/L Alkaline Phosphatase (40-150) Total Protein (6.0-8.0) g/dL Albumin (3.5-5.0) g/dL Globulin (2.0-3.5) g/dL Albumin/Globulin Ratio (1.3-2.8) 05/19/16 Range/Units 05:14 WBC (4.0-11.0) K/uL RBC (4.30-5.90) M/uL Hgb (12.0-16.0) g/dL Hct (36.0-46.0) % MCV (80.0-98.0) fL MCH (27.0-32.0) pg MCHC (31.0-37.0) g/dL RDW Std Deviation (28.0-62.0) fl RDW Coeff of Dyllan (11.0-15.0) % Plt Count (150-400) K/uL MPV (7.40-12.00) fL Nucleated RBC % /100WBC Nucleated RBCs # K/uL Sodium 137 (136-146) mmol/L Potassium 3.9 (3.5-5.1) mmol/L Chloride 105 (98-110) mmol/L Carbon Dioxide 25 (21-31) mmol/L BUN 16 (6.0-23.0) mg/dL Creatinine 0.7 (0.6-1.5) mg/dL Est Cr Clr Drug Dosing 109.61 mL/min Estimated GFR (MDRD) > 60.0 ml/min Glucose 100 (60-110) mg/dL Calcium 7.2 L (8.8-10.8) mg/dL Magnesium (1.5-2.3) mEq/L Total Bilirubin 0.2 (0.1-1.5) mg/dL AST 118 H (5-40) IU/L ALT 208 H (8-54) IU/L Alkaline Phosphatase 153 H (40-150) Total Protein 5.1 L (6.0-8.0) g/dL Albumin 2.6 L (3.5-5.0) g/dL Globulin 2.5 (2.0-3.5) g/dL Albumin/Globulin Ratio 1.0 L (1.3-2.8) Med Orders - Current: Current Medications Bisacodyl (Dulcolax) 10 mg RECTAL .ONCE PRN PRN Reason: Constipation Calcium Gluconate (Calcium Gluconate) 1 gm IV ASDIRECTED PRN PRN Reason: respiratory distress Diphenhydramine HCl (Benadryl) 25 mg IVPUSH Q6H PRN PRN Reason: Itching or Nausea Docusate Sodium (Colace) 100 mg PO BID [facility] Last Admin: 05/19/16 09:10 Dose: 100 mg Emollient Ointment (Lansinoh Hpa) 0 gm TOP ASDIRECTED PRN PRN Reason: Sore Nipples Magnesium Sulfate (Magnesium Sulfate 40 Gm In Water 1000 Ml) 40 gm in 1,000 mls @ 50 mls/hr IV ASDIRECTED [facility] PRN Reason: 2 GM/HR Last Admin: 05/18/16 09:57 Dose: 2 gm/hr, 50 mls/hr Lactated Ringer's (Ringers, Lactated) 1,000 mls @ 25 mls/hr IV ASDIRECTED [facility] PRN Reason: Protocol Last Admin: 05/17/16 15:05 Dose: 25 mls/hr Ibuprofen (Motrin) 800 mg PO Q8H PRN PRN Reason: mild pain or fever Last Admin: 05/19/16 05:48 Dose: 800 mg Labetalol HCl (Normodyne) 100 mg PO BID PRN PRN Reason: SBP >=160 or DBP >=100 Ondansetron HCl (Zofran) 4 mg IV Q4H PRN PRN Reason: Nausea/Vomiting Oxycodone/Acetaminophen (Percocet 325-5 Mg) 2 tab PO ONETIME PRN PRN Reason: Pain (moderate 4-6) Oxycodone/Acetaminophen (Percocet 325-5 Mg) 1 tab PO Q4H PRN PRN Reason: Pain (moderate 4-6) Last Admin: 05/19/16 09:12 Dose: 1 tab Oxycodone/Acetaminophen (Percocet 325-5 Mg) 2 tab PO Q4H PRN PRN Reason: Pain (moderate 4-6) Sodium Chloride (Saline Flush) 10 ml FLUSH ASDIRECTED PRN PRN Reason: Keep Vein Open Sodium Chloride (Saline Flush) 2.5 ml FLUSH ASDIRECTED PRN PRN Reason: Keep Vein Open Discontinued Medications Acetaminophen (Tylenol) 650 mg PO Q4H PRN PRN Reason: mild pain and fever Last Admin: 05/16/16 22:19 Dose: 650 mg Betamethasone Acet/Betameth SodPhos (Celestone Soluspan 6 Mg/Ml) 12 mg IM Q24H [facility] Stop: 05/16/16 21:01 Last Admin: 05/16/16 22:19 Dose: 12 mg Butorphanol Tartrate (Stadol) 1 mg IVPUSH Q1H PRN PRN Reason: Pain Carboprost Tromethamine (Hemabate Ds) 250 mcg IM ASDIRECTED PRN PRN Reason: Post Hemorrhage Citric Acid/Sodium Citrate (Bicitra Solution) 30 ml PO .ONCE [facility] Last Admin: 05/17/16 11:10 Dose: 30 ml Fentanyl (Sublimaze) 50 mcg IVPUSH Q5M PRN PRN Reason: Pain (severe 7-10) Stop: 05/18/16 13:06 Furosemide (Lasix) 20 mg IVPUSH NOW ONE Stop: 05/19/16 06:11 Last Admin: 05/19/16 06:30 Dose: 20 mg Hydroxyzine Pamoate (Vistaril) 25 mg PO BEDTIME PRN PRN Reason: Insomnia Last Admin: 05/16/16 22:24 Dose: 25 mg Lactated Ringer's (Ringers, Lactated) 1,000 mls @ 150 mls/hr IV ASDIRECTED [facility] Oxytocin/Lactated Ringer's (Pitocin In Lr 30 Units/500 Ml) 30 unit in 500 mls @ 999 mls/hr IV TITRATE [facility]; 999 MUNITS/MIN PRN Reason: Protocol Stop: 05/15/16 21:31 Cefazolin Sodium/Dextrose 2 gm (/ Premix) 50 mls @ 100 mls/hr IV ONETIME ONE Stop: 05/17/16 10:31 Last Admin: 05/18/16 11:07 Dose: Not Given Lactated Ringer's (Ringers, Lactated) 1,000 mls @ 500 mls/hr IV .BOLUS [facility] Last Admin: 05/17/16 11:10 Dose: 500 mls/hr Magnesium Sulfate 4 gm/ Premix 100 mls @ 300 mls/hr IV .BOLUS ONE Stop: 05/17/16 13:25 Last Admin: 05/17/16 13:53 Dose: 300 mls/hr Ketorolac Tromethamine (Toradol) 30 mg IVPUSH Q6H [facility] Stop: 05/18/16 15:15 Last Admin: 05/18/16 15:14 Dose: 30 mg Lidocaine HCl (Xylocaine 1%) 50 ml INJECT .ONCE PRN PRN Reason: Laceration repair Methylergonovine Maleate (Methergine) 0.2 mg IM ASDIRECTED PRN PRN Reason: Post Hemorrhage Midazolam HCl (Versed 1 Mg/Ml) Confirm Administered Dose 2 mg .ROUTE .STK-MED ONE Stop: 05/17/16 13:01 Misoprostol (Cytotec) 200 mcg PO .ONCE PRN PRN Reason: Post Hemorrhage Morphine Sulfate (Duramorph Pf) Confirm Administered Dose 10 mg .ROUTE .STK-MED ONE Stop: 05/17/16 10:53 Nalbuphine HCl (Nubain) 10 mg IVPUSH Q1H PRN PRN Reason: Pain (severe 7-10) Stop: 05/15/16 22:52 Naloxone HCl (Narcan) 0.1 mg IVPUSH ONETIME PRN PRN Reason: Oversedation Stop: 05/18/16 13:07 Ondansetron HCl (Zofran) Confirm Administered Dose 4 mg .ROUTE .STK-MED ONE Stop: 05/17/16 10:52 Oxytocin (Pitocin) Confirm Administered Dose 20 unit .ROUTE .STK-MED ONE Stop: 05/17/16 10:52 Pantoprazole Sodium (Protonix) 40 mg PO DAILY [facility] Last Admin: 05/17/16 10:06 Dose: Not Given Phenylephrine HCl (Kd-Synephrine) Confirm Administered Dose 10 mg .ROUTE .STK- MED ONE Stop: 05/17/16 10:52 Prenat Multivit/Piatt/Iron/Folic Ac ( Mtr) 1 each PO DAILY [facility] Last Admin: 05/17/16 10:05 Dose: Not Given Sodium Chloride (Saline Flush) 10 ml FLUSH ASDIRECTED PRN PRN Reason: Keep Vein Open Sodium Chloride (Saline Flush) 2.5 ml FLUSH ASDIRECTED PRN PRN Reason: Keep Vein Open Sodium Chloride (Saline Flush) 10 ml FLUSH ASDIRECTED PRN PRN Reason: Keep Vein Open Sodium Chloride (Saline Flush) 2.5 ml FLUSH ASDIRECTED PRN PRN Reason: Keep Vein Open Sterile Water (Sterile Water For Irrigation) 1,000 ml IRR ASDIRECTED PRN PRN Reason: delivery Temazepam (Restoril) 15 mg PO BEDTIME ONE Stop: 05/18/16 22:01 Last Admin: 05/18/16 22:35 Dose: 15 mg - Infant Interaction Disposition, : to Nursery Interaction: Holding Infant Feeding: Bottle Fed Support Person: - Recovery Exam Fundal Tone: Firm Fundal Level: 1 Fingerbreadths Below Umbilicus Fundal Placement: Midline Lochia Amount: Scant Lochia Color: Rubra/Red Perineum Description: Intact, Minimal Bruising/Swelling Episiotomy/Laceration: None Bladder Status: Voiding Urinary Elimination: Voided - Exam General: alert, oriented HEENT: Pupils equal Lungs: Clear to auscultation, Normal respiratory effort Cardiovascular: Regular Rate, Regular Rhythm Abdomen: bowel sounds present, soft, no tenderness, no distension Extremities: no calf tenderness, edema Skin: warm Wound/Incisions: healing well Neurological: no new focal deficit Psy/Mental Status: alert, normal affect, normal mood - Problem List & Annotations (1) delivery delivered SNOMED Code(s): 921454017 Code(s): O82 - ENCOUNTER FOR DELIVERY WITHOUT INDICATION Status: Acute Current Visit: Yes (2) Preeclampsia SNOMED Code(s): 275804953 Code(s): O14.90 - UNSPECIFIED PRE-ECLAMPSIA, UNSPECIFIED TRIMESTER Status: Acute Current Visit: Yes - Problem List Review Problem List Initiated/Reviewed/Updated: Yes - My Orders Last 24 Hours: My Active Orders 05/18/16 09:15 Deep Tendon Reflexes [WOMSER] Q1H 05/18/16 10:15 Deep Tendon Reflexes [WOMSER] Q1H 05/18/16 11:15 Deep Tendon Reflexes [WOMSER] Q1H 05/18/16 12:15 Deep Tendon Reflexes [WOMSER] Q1H 05/18/16 19:09 Labetalol [Normodyne] 100 mg PO BID PRN 05/18/16 Dinner Regular Diet [DIET] - Assessment Assessment:: POD#2, s/p Primary C/S at 36 weeks for preeclampsia with malpresentation of Twin A. s/p MgSO4. Asymptomatic for S/S of preecalmpsia. Pain well controlled. L BP labile but not requiring antihypertensive. Still edematous but diuresing well. Wt 220lbs, up from 201lbs LFT elevated: ONA680<--120, ALT 208<--167. Normal plts. Hgb: 9.8 The Twins are doing well in NICU - Plan Plan:: Doing well. Continue current management with close monitoring of BP Furosemide 20mg IV given this am Repeat CMP in the am
[2016-05-20] MEDS: Ibuprofen 800 MG Tab PO PRN ×2 (03:58→12:05)
[2016-05-20 06:12] LABS: CHLORIDE,CL 107 mmol/L (98-110); SODIUM,NA 140 mmol/L (136-146)
[2016-05-20] MEDS ORDERED: Furosemide 20 MG/2 ML VIAL IVPUSH SCH (09:00)
[2016-05-20] MEDS ORDERED: Labetalol 100 MG Tab PO ONE (09:04)
[2016-05-20] MEDS: Docusate Sodium 100 MG Cap PO SCH (09:11)
--- NOTE | 2016-05-20 10:53 | US ---
EXAM DATE: 05/15/16 PATIENT'S AGE: 31 Patient: SANG HIDALGO Facility: [facility] Site . Site : 1985 Study: US-OB Pelvis [id number]/13/[id number] 10:21:34 AM Ordering Physician: Suman Pearce Final Report: HISTORY: Twin gestation. FINDINGS: Multiple grayscale static images from OB ultrasound evaluated compared with 11 March 2016. There is a viable twin gestation. Fetus A is in breech presentation. The cardiac rate 147 beats per minute. Amniotic fluid index for twin A is 10.6 cm. The placenta is posterior without previa. biometry 28 demonstrates BPD of 8.9 cm, 35 weeks 6 days. Head circumference 32.1 cm, 36 weeks 2 days. Abdominal circumference 30.0 cm, 34 weeks 0 days. Femur length is 6.9 cm, 35 weeks 3 days. The estimated gestational age by ultrasound is 35 weeks 2 days with an estimated date of delivery of 18 June 2016. The estimated weight is 2509 g or 5 pounds 9 ounces. Twin B is in cephalic presentation. The cardiac rate is 128 beats per minute. The amniotic fluid index is 16.8 cm. The placenta is anterior without previa. biometry demonstrates a BPD of 9.0 cm, 36 weeks 3 days. Head circumference 32.5 cm, 36 weeks 6 days. Abdominal circumference 32.7 cm, 36 weeks 4 days. Femur length is 7.1 cm, 36 weeks 1 day. Estimated gestational age by ultrasound is 36 weeks 3 days with estimated delivery of 10 June 2016. The estimated weight 2952 g or 6 pounds 8 ounces. The cervix measures 4.4 cm in length. IMPRESSION: 1. Viable twin . 2. Twin A is in a breech presentation with estimated gestational age of 35 weeks 2 days. This correlates with LMP. Estimated weight is 2509 grams. 3. Twin B is in cephalic presentation. Estimated gestational age is 36 weeks 3 days. This is 8 days ahead of twin A. Estimated weight is 2952 g. Dictated by Rosina Aguiar MD @ 05/16/2016 10:41:25 AM Dictated by: Rosina Aguiar MD @ 05/16/2016 10:45:42 Signed by: Rosina Aguiar MD @05/16/2016 10:45:42 AM (Electronic Signature) Report Signed by Proxy and Original Signed Document filed in the Medical Record. HÉCTOR
--- NOTE | 2016-05-20 10:54 | US ---
EXAM DATE: 05/15/16 PATIENT'S AGE: 31 Patient: SANG HIDALGO Facility: [facility] Site . Site : 1985 Study: US-OB Pelvis [id number]/13/2017 10:21:34 AM Ordering Physician: Suman Pearce Final Report: HISTORY: Twin gestation. FINDINGS: Multiple grayscale static images from OB ultrasound evaluated compared with 11 March 2016. There is a viable twin gestation. Fetus A is in breech presentation. The cardiac rate 147 beats per minute. Amniotic fluid index for twin A is 10.6 cm. The placenta is posterior without previa. biometry 28 demonstrates BPD of 8.9 cm, 35 weeks 6 days. Head circumference 32.1 cm, 36 weeks 2 days. Abdominal circumference 30.0 cm, 34 weeks 0 days. Femur length is 6.9 cm, 35 weeks 3 days. The estimated gestational age by ultrasound is 35 weeks 2 days with an estimated date of delivery of 18 June 2016. The estimated weight is 2509 g or 5 pounds 9 ounces. Twin B is in cephalic presentation. The cardiac rate is 128 beats per minute. The amniotic fluid index is 16.8 cm. The placenta is anterior without previa. biometry demonstrates a BPD of 9.0 cm, 36 weeks 3 days. Head circumference 32.5 cm, 36 weeks 6 days. Abdominal circumference 32.7 cm, 36 weeks 4 days. Femur length is 7.1 cm, 36 weeks 1 day. Estimated gestational age by ultrasound is 36 weeks 3 days with estimated delivery of 10 June 2016. The estimated weight 2952 g or 6 pounds 8 ounces. The cervix measures 4.4 cm in length. IMPRESSION: 1. Viable twin . 2. Twin A is in a breech presentation with estimated gestational age of 35 weeks 2 days. This correlates with LMP. Estimated weight is 2509 grams. 3. Twin B is in cephalic presentation. Estimated gestational age is 36 weeks 3 days. This is 8 days ahead of twin A. Estimated weight is 2952 g. Dictated by Rosina Aguiar MD @ 05/16/2016 10:41:25 AM Dictated by: Rosina Aguiar MD @ 05/16/2016 10:45:42 Signed by: Rosina Aguiar MD @05/16/2016 10:45:42 AM (Electronic Signature) Report Signed by Proxy and Original Signed Document filed in the Medical Record. HÉCTOR
--- NOTE | 2016-05-20 10:57 | US ---
EXAM DATE: 05/15/16 PATIENT'S AGE: 31 Patient: SANG HIDALGO Facility: [facility] Site . Site : 1985 Study: US-OB Pelvis [id number]/[id number] 10:20:29 AM Ordering Physician: Suman Pearce Final Report: HISTORY: Biophysical profile, twin gestation, preeclampsia. FINDINGS: Biophysical profile was done concurrently with OB ultrasound. Twin A is in a breech presentation with a cardiac rate of 133 beats per minute. The amniotic fluid index is 9.7 cm. Biophysical profile is 2/2 movement, 0/4 breathing, 2/2 for tone and 2/2 for amniotic fluid. The total is 6/8. Twin B is in cephalic presentation. Cardiac rate is 133 beats per minute. The amniotic fluid index is 15.9 cm. Biophysical profile as 2/2 for movement, 0/2 for breathing, 2/2 for tone and 2/2 for amniotic fluid. The total is total of 6/8. IMPRESSION: 1. Twin A is in breech presentation with biophysical profile 6/8. 2. Twin B is in cephalic presentation with biophysical profile is 6/8. Dictated by Rosina Aguiar MD @ 05/16/2016 10:45:23 AM Dictated by: Rosina Aguiar MD @ 05/16/2016 10:45:32 Signed by: Rosina Aguiar MD @05/16/2016 10:45:32 AM (Electronic Signature) Report Signed by Proxy and Original Signed Document filed in the Medical Record. MTDD
[2016-05-20 12:12] VITALS: BP 147/95
--- NOTE | 2016-05-20 12:50 | PCM.PNPP ---
- General Info Date of Service: 05/20/16 Admission Dx/Problem (Free Text): POD#3 Functional Status: Reports: pain controlled, tolerating diet, ambulating, urinating - Review of Systems General: Denies: Fever, Weakness, Malaise, Chills HEENT: Denies: headaches Pulmonary: Denies: shortness of breath, pleuritic chest pain, cough Cardiovascular: Denies: Chest Pain, Palpitations, Dyspnea on Exertion Gastrointestinal: Denies: Abdominal pain, Nausea, Vomiting Genitourinary: Denies: dysuria, flank pain Neurological: Denies: Dizziness Psychiatric: Denies: depression, mood lability, anxiety - General Info Date of Service: 05/20/16 - Patient Data Vital Signs - most recent: Last Vital Signs Temp 36.7 C 05/20/16 08:45 Pulse 88 05/20/16 12:00 Resp 20 05/20/16 08:45 BP 147/95 H 05/20/16 12:00 Pulse Ox 97 05/20/16 08:45 Weight - most recent: 218 lb 8 oz I&O - last 24 hours: Intake & Output 05/19/16 05/20/16 05/20/16 22:59 06:59 14:59 Intake Total 800 2000 Output Total 2900 1000 Balance -2100 1000 Lab Results - last 24 hrs: Laboratory Results - last 24 hr 05/20/16 Range/Units 05:24 Sodium 140 (136-146) mmol/L Potassium 4.3 (3.5-5.1) mmol/L Chloride 107 (98-110) mmol/L Carbon Dioxide 25 (21-31) mmol/L BUN 12 (6.0-23.0) mg/dL Creatinine 0.7 (0.6-1.5) mg/dL Est Cr Clr Drug Dosing 109.61 mL/min Estimated GFR (MDRD) > 60.0 ml/min Glucose 72 (60-110) mg/dL Calcium 8.0 L (8.8-10.8) mg/dL Total Bilirubin 0.3 (0.1-1.5) mg/dL AST 92 H (5-40) IU/L ALT 181 H (8-54) IU/L Alkaline Phosphatase 140 (40-150) Total Protein 5.3 L (6.0-8.0) g/dL Albumin 2.6 L (3.5-5.0) g/dL Globulin 2.7 (2.0-3.5) g/dL Albumin/Globulin Ratio 1.0 L (1.3-2.8) Med Orders - Current: Current Medications Bisacodyl (Dulcolax) 10 mg RECTAL .ONCE PRN PRN Reason: Constipation Calcium Gluconate (Calcium Gluconate) 1 gm IV ASDIRECTED PRN PRN Reason: respiratory distress Diphenhydramine HCl (Benadryl) 25 mg IVPUSH Q6H PRN PRN Reason: Itching or Nausea Docusate Sodium (Colace) 100 mg PO BID [facility] Last Admin: 05/20/16 09:11 Dose: 100 mg Emollient Ointment (Lansinoh Hpa) 0 gm TOP ASDIRECTED PRN PRN Reason: Sore Nipples Furosemide (Lasix) 20 mg IVPUSH DAILY [facility] Last Admin: 05/20/16 09:25 Dose: 20 mg Magnesium Sulfate (Magnesium Sulfate 40 Gm In Water 1000 Ml) 40 gm in 1,000 mls @ 50 mls/hr IV ASDIRECTED [facility] PRN Reason: 2 GM/HR Last Admin: 05/18/16 09:57 Dose: 2 gm/hr, 50 mls/hr Lactated Ringer's (Ringers, Lactated) 1,000 mls @ 25 mls/hr IV ASDIRECTED [facility] PRN Reason: Protocol Last Admin: 05/17/16 15:05 Dose: 25 mls/hr Ibuprofen (Motrin) 800 mg PO Q8H PRN PRN Reason: mild pain or fever Last Admin: 05/20/16 12:05 Dose: 800 mg Labetalol HCl (Normodyne) 100 mg PO BID PRN PRN Reason: SBP >=160 or DBP >=100 Ondansetron HCl (Zofran) 4 mg IV Q4H PRN PRN Reason: Nausea/Vomiting Oxycodone/Acetaminophen (Percocet 325-5 Mg) 2 tab PO ONETIME PRN PRN Reason: Pain (moderate 4-6) Oxycodone/Acetaminophen (Percocet 325-5 Mg) 1 tab PO Q4H PRN PRN Reason: Pain (moderate 4-6) Last Admin: 05/19/16 11:54 Dose: 1 tab Oxycodone/Acetaminophen (Percocet 325-5 Mg) 2 tab PO Q4H PRN PRN Reason: Pain (moderate 4-6) Last Admin: 05/19/16 22:29 Dose: 2 tab Sodium Chloride (Saline Flush) 10 ml FLUSH ASDIRECTED PRN PRN Reason: Keep Vein Open Sodium Chloride (Saline Flush) 2.5 ml FLUSH ASDIRECTED PRN PRN Reason: Keep Vein Open Discontinued Medications Acetaminophen (Tylenol) 650 mg PO Q4H PRN PRN Reason: mild pain and fever Last Admin: 05/16/16 22:19 Dose: 650 mg Betamethasone Acet/Betameth SodPhos (Celestone Soluspan 6 Mg/Ml) 12 mg IM Q24H [facility] Stop: 05/16/16 21:01 Last Admin: 05/16/16 22:19 Dose: 12 mg Butorphanol Tartrate (Stadol) 1 mg IVPUSH Q1H PRN PRN Reason: Pain Carboprost Tromethamine (Hemabate Ds) 250 mcg IM ASDIRECTED PRN PRN Reason: Post Hemorrhage Citric Acid/Sodium Citrate (Bicitra Solution) 30 ml PO .ONCE [facility] Last Admin: 05/17/16 11:10 Dose: 30 ml Fentanyl (Sublimaze) 50 mcg IVPUSH Q5M PRN PRN Reason: Pain (severe 7-10) Stop: 05/18/16 13:06 Furosemide (Lasix) 20 mg IVPUSH NOW ONE Stop: 05/19/16 06:11 Last Admin: 05/19/16 06:30 Dose: 20 mg Hydroxyzine Pamoate (Vistaril) 25 mg PO BEDTIME PRN PRN Reason: Insomnia Last Admin: 05/16/16 22:24 Dose: 25 mg Lactated Ringer's (Ringers, Lactated) 1,000 mls @ 150 mls/hr IV ASDIRECTED [facility] Oxytocin/Lactated Ringer's (Pitocin In Lr 30 Units/500 Ml) 30 unit in 500 mls @ 999 mls/hr IV TITRATE [facility]; 999 MUNITS/MIN PRN Reason: Protocol Stop: 05/15/16 21:31 Cefazolin Sodium/Dextrose 2 gm (/ Premix) 50 mls @ 100 mls/hr IV ONETIME ONE Stop: 05/17/16 10:31 Last Admin: 05/18/16 11:07 Dose: Not Given Lactated Ringer's (Ringers, Lactated) 1,000 mls @ 500 mls/hr IV .BOLUS [facility] Last Admin: 05/17/16 11:10 Dose: 500 mls/hr Magnesium Sulfate 4 gm/ Premix 100 mls @ 300 mls/hr IV .BOLUS ONE Stop: 05/17/16 13:25 Last Admin: 05/17/16 13:53 Dose: 300 mls/hr Ketorolac Tromethamine (Toradol) 30 mg IVPUSH Q6H [facility] Stop: 05/18/16 15:15 Last Admin: 05/18/16 15:14 Dose: 30 mg Labetalol HCl (Normodyne) 100 mg PO ONETIME ONE Stop: 05/20/16 09:05 Last Admin: 05/20/16 09:28 Dose: 100 mg Lidocaine HCl (Xylocaine 1%) 50 ml INJECT .ONCE PRN PRN Reason: Laceration repair Methylergonovine Maleate (Methergine) 0.2 mg IM ASDIRECTED PRN PRN Reason: Post Hemorrhage Midazolam HCl (Versed 1 Mg/Ml) Confirm Administered Dose 2 mg .ROUTE .STK-MED ONE Stop: 05/17/16 13:01 Misoprostol (Cytotec) 200 mcg PO .ONCE PRN PRN Reason: Post Hemorrhage Morphine Sulfate (Duramorph Pf) Confirm Administered Dose 10 mg .ROUTE .STK-MED ONE Stop: 05/17/16 10:53 Nalbuphine HCl (Nubain) 10 mg IVPUSH Q1H PRN PRN Reason: Pain (severe 7-10) Stop: 05/15/16 22:52 Naloxone HCl (Narcan) 0.1 mg IVPUSH ONETIME PRN PRN Reason: Oversedation Stop: 05/18/16 13:07 Ondansetron HCl (Zofran) Confirm Administered Dose 4 mg .ROUTE .STK-MED ONE Stop: 05/17/16 10:52 Oxytocin (Pitocin) Confirm Administered Dose 20 unit .ROUTE .STK-MED ONE Stop: 05/17/16 10:52 Pantoprazole Sodium (Protonix) 40 mg PO DAILY [facility] Last Admin: 05/17/16 10:06 Dose: Not Given Phenylephrine HCl (Kd-Synephrine) Confirm Administered Dose 10 mg .ROUTE .STK- MED ONE Stop: 05/17/16 10:52 Prenat Multivit/[place]/Iron/Folic Ac ( Mtr) 1 each PO DAILY [facility] Last Admin: 05/17/16 10:05 Dose: Not Given Sodium Chloride (Saline Flush) 10 ml FLUSH ASDIRECTED PRN PRN Reason: Keep Vein Open Sodium Chloride (Saline Flush) 2.5 ml FLUSH ASDIRECTED PRN PRN Reason: Keep Vein Open Sodium Chloride (Saline Flush) 10 ml FLUSH ASDIRECTED PRN PRN Reason: Keep Vein Open Sodium Chloride (Saline Flush) 2.5 ml FLUSH ASDIRECTED PRN PRN Reason: Keep Vein Open Sterile Water (Sterile Water For Irrigation) 1,000 ml IRR ASDIRECTED PRN PRN Reason: delivery Temazepam (Restoril) 15 mg PO BEDTIME ONE Stop: 05/18/16 22:01 Last Admin: 05/18/16 22:35 Dose: 15 mg - Infant Interaction Infant Disposition, : [place] in Room with Family Infant Interaction: Holding Infant Infant Feeding: Bottle Fed Infant Support Person: - Recovery Exam Fundal Tone: Firm Fundal Level: 1 Fingerbreadths Below Umbilicus Fundal Placement: Midline Lochia Amount: Scant Lochia Color: Rubra/Red Perineum Description: Intact, Minimal Bruising/Swelling Episiotomy/Laceration: None Bladder Status: Voiding Urinary Elimination: Voided - Exam General: alert, oriented Neck: supple Lungs: Clear to auscultation, Normal respiratory effort Cardiovascular: Regular Rate, Regular Rhythm Abdomen: bowel sounds present, soft, no tenderness, no distension Extremities: no calf tenderness, edema Skin: warm Wound/Incisions: healing well Neurological: no new focal deficit Psy/Mental Status: alert, normal affect, normal mood - Problem List & Annotations (1) delivery delivered SNOMED Code(s): 333940447 Code(s): O82 - ENCOUNTER FOR DELIVERY WITHOUT INDICATION Status: Acute Current Visit: Yes (2) Preeclampsia SNOMED Code(s): 516438266 Code(s): O14.90 - UNSPECIFIED PRE-ECLAMPSIA, UNSPECIFIED TRIMESTER Status: Acute Current Visit: Yes - Problem List Review Problem List Initiated/Reviewed/Updated: Yes - My Orders Last 24 Hours: My Active Orders 03/17/17 09:00 Furosemide [Lasix] 20 mg IVPUSH DAILY - Assessment Assessment:: POD#3, s/p Primary C/S at 36 weeks for preeclampsia with malpresentation of Twin A. s/p MgSO4. Asymptomatic for S/S of preecalmpsia. Patient doing well BP labile Had a dose of labetalol 100mg this am. LFT improving. Clinically stable for discharge - Plan Plan:: Discharge instructions reviewed. Nothing in the vagina for 6weeks Bleeding and infection precautions reviewed Preeclampsia precautions given Continue labetolol 100mg BID, Furosemide. Ferrous sulphate and Pain meds Follow up in clinic in a week for BP check
== END 2016-05-20 15:15 | disposition home or self-care (01) | DRG 540 ==
LOC: MW.OBCHECK 19:18 → MW.OB 19:41 → MW.OBCHECK 20:50 → OBSVTOIN 20:51 → INTOOBSV 20:51 → MW.OB 20:51 → OBSVTOIN 05-17 12:43 → UNDODISIN 05-20 15:15
PROVIDERS: ADMIT Obstetrics & Gynecology; ATTEND Obstetrics & Gynecology
PROC: 10D00Z1 Extraction of Products of Conception, Low, Open Approach (ICD-10-PCS; principal; 2016-05-15)
DX: O11.4 Pre-existing hypertension with pre-eclampsia, complicating childbirth (principal); O32.1XX0 Maternal care for breech presentation, not applicable or unspecified; O30.043 Twin pregnancy, dichorionic/diamniotic, third trimester; O26.62 Liver and biliary tract disorders in childbirth; K83.1 Obstruction of bile duct; Z3A.35 35 weeks gestation of pregnancy; Z37.2 Twins, both liveborn
CPT/HCPCS: 01961; 36415; 59025; 76815; 76815-26; 76816; 76819; 76819-26; 80053; 81003; 82565; 83615; 83735; 84156; 84450; 84460; 84520; 84550; 85025; 85027; 86850; 86900; 86901; 88307; A9270-GY; J0690; J0702; J1885; J2250; J2270; J2370; J2405; J2590; J3475; J7120

== ENCOUNTER 2018-06-01 05:16 | Inpatient (IN) | payer BC ==
[2018-06-01] MEDS ORDERED: Citric Acid/Sodium Citrate Solution 30 ML Cup PO ONE (05:19)
[2018-06-01] MEDS ORDERED: Sodium Chloride 0.9% 10 ML Syringe FLUSH PRN (05:19)
[2018-06-01] MEDS ORDERED: Sodium Chloride 0.9% 2.5 ML Syringe FLUSH PRN (05:19)
[2018-06-01] MEDS ORDERED: Sodium Chloride 0.9% 10 ML SDV IV PRN (05:19)
[2018-06-01] MEDS ORDERED: Oxytocin/0.9 % Sodium Chloride 30 UNIT/500 ML BAG IV SCH (05:30)
[2018-06-01] MEDS: Lactated Ringers 1,000 ML IV SCH ×5 (05:50→16:38)
--- NOTE | 2018-06-01 06:28 | PCM.PREANE ---
Preanesthetic Assessment - Anesthesia/Transfusion/Family Hx Anesthesia History: Prior Anesthesia Without Reaction Family History of Anesthesia Reaction: No Transfusion History: No Prior Transfusion(s) - Review of Systems General: No Symptoms Pulmonary: No Symptoms Cardiovascular: No Symptoms Gastrointestinal: No Symptoms Neurological: No Symptoms Other: Reports: None - Physical Assessment Height: 5 ft 7.25 in Weight: 107.048 kg ASA Class: 2 Mental Status: Alert & Oriented x3 Airway Class: Mallampati = 2 Dentition: Reports: Normal Dentition Thyro-Mental Finger Breadths: 3 Mouth Opening Finger Breadths: 3 ROM/Head Extension: Full Lungs: Clear to Auscultation, Normal Respiratory Effort Cardiovascular: Regular Rate, Regular Rhythm - Lab Values: Laboratory Last Values WBC 8.37 K/uL (4.0-11.0) 06/01/18 05:19 RBC 4.15 M/uL (4.30-5.90) L 06/01/18 05:19 Hgb 12.1 g/dL (12.0-16.0) 06/01/18 05:19 Hct 35.7 % (36.0-46.0) L 06/01/18 05:19 MCV 86.0 fL (80.0-98.0) 06/01/18 05:19 MCH 29.2 pg (27.0-32.0) 06/01/18 05:19 MCHC 33.9 g/dL (31.0-37.0) 06/01/18 05:19 RDW Std Deviation 42.0 fl (28.0-62.0) 06/01/18 05:19 RDW Coeff of Dyllan 13 % (11.0-15.0) 06/01/18 05:19 Plt Count 228 K/uL (150-400) 06/01/18 05:19 MPV 11.50 fL (7.40-12.00) 06/01/18 05:19 Nucleated RBC % 0.0 /100WBC 06/01/18 05:19 Nucleated RBCs # 0 K/uL 06/01/18 05:19 - Allergies Allergies/Adverse Reactions: Allergies Allergy/AdvReac Type Severity Reaction Status Date / Time No Known Allergies Allergy Verified 04/24/16 00:16 - Acknowledgements Anesthesia Type Planned: Spinal (Duramorph) Pt an Appropriate Candidate for the Planned Anesthesia: Yes Alternatives and Risks of Anesthesia Discussed w Pt/Guardian: Yes Pt/Guardian Understands and Agrees with Anesthesia Plan: Yes PreAnesthesia Questionnaire HEENT History: Reports: Other (See Below) Other HEENT History: wears glasses/contacts Cardiovascular History: Reports: Hypertension Other Cardiovascular History: hypertention related to , on no meds Respiratory History: Reports: None Gastrointestinal History: Reports: GERD, Other (See Below) Other Gastrointestinal History: occ heartburn with Genitourinary History: Reports: None VALIDATION ENGINEER History: Reports: : 2 Para: 1 LMP (Approximate): Musculoskeletal History: Reports: Fracture Other Musculoskeletal History: hx fx arm Neurological History: Reports: None Psychiatric History: Reports: None Endocrine/Metabolic History: Reports: Obesity/BMI 30+ Hematologic History: Reports: None Immunologic History: Reports: None Oncologic (Cancer) History: Reports: None Dermatologic History: Reports: None - Infectious Disease History Infectious Disease History: Reports: Chicken Pox - Past Surgical History Head Surgeries/Procedures: Reports: None HEENT Surgical History: Reports: Naso-Sinus Surgery, Other (See Below) Other HEENT Surgeries/Procedures: reconstructive nose surgery as a child Cardiovascular Surgical History: Reports: None Respiratory Surgical History: Reports: None GI Surgical History: Reports: None Female Surgical History: Reports: Section Endocrine Surgical History: Reports: None Neurological Surgical History: Reports: None Musculoskeletal Surgical History: Reports: None, Shoulder Surgery Oncologic Surgical History: Reports: None Dermatological Surgical History: Reports: None - SUBSTANCE USE Smoking Status *Q: Never Smoker Recreational Drug Use History: No - HOME MEDS Home Medications: Home Meds PNV95/Ferrous Fumarate/FA [ Vitamin Tablet] 1 tab PO DAILY 05/29/18 [ History] - CURRENT (IN HOUSE) MEDS Current Meds: Current Medications Cefazolin Sodium/Dextrose 2 gm (/ Premix) 50 mls @ 100 mls/hr IV ONETIME ONE Stop: 06/01/18 06:59 Lactated Ringer's (Ringers, Lactated) 1,000 mls @ 500 mls/hr IV BOLUS ADINA Last Admin: 06/01/18 06:21 Dose: 999 mls/hr Oxytocin/Sodium Chloride (Oxytocin 30 Unit/500 Ml-Ns) 30 unit in 500 mls @ 250 mls/hr IV TITRATE ADINA Sodium Chloride (Saline Flush) 10 ml FLUSH ASDIRECTED PRN PRN Reason: Keep Vein Open Sodium Chloride (Saline Flush) 2.5 ml FLUSH ASDIRECTED PRN PRN Reason: Keep Vein Open Sodium Chloride (Normal Saline) 10 ml IV ASDIRECTED PRN PRN Reason: IV Use Discontinued Medications Citric Acid/Sodium Citrate (Bicitra Solution) 30 ml PO ONETIME ONE Stop: 06/01/18 05:20
[2018-06-01] MEDS ORDERED: ceFAZolin 2 GM in Premix Bag 1 BAG IV ONE (06:30)
[2018-06-01] MEDS ORDERED: Ondansetron 4 MG/2 ML SDV ONE (06:40)
[2018-06-01] MEDS ORDERED: Oxytocin/0.9 % Sodium Chloride 30 UNIT/500 ML BAG ONE (06:40)
[2018-06-01] MEDS ORDERED: ePHEDrine 50 MG/ML SDV ONE (06:40)
[2018-06-01] MEDS ORDERED: Morphine PF 10 MG/10 ML SDV ONE (06:41)
[2018-06-01] MEDS ORDERED: Sodium Chloride 0.9% 20 ML ONE ×2 (06:44→06:45)
[2018-06-01] MEDS ORDERED: ceFAZolin 1 GM Vial ONE (06:44)
[2018-06-01] MEDS ORDERED: diphenhydrAMINE 50 MG/ML SDV IVPUSH PRN ×2 (07:41→08:17)
[2018-06-01] MEDS ORDERED: Naloxone 0.4 MG/ML Syringe IVPUSH PRN (07:41)
[2018-06-01] MEDS ORDERED: Nalbuphine 10 MG/1 ML Vial IVPUSH PRN (07:41)
[2018-06-01] MEDS ORDERED: Octyl 2-Cyanoacrylate 1 Tube ONE (08:04)
[2018-06-01] MEDS ORDERED: Bisacodyl 10 MG Supp RECTAL PRN (08:17)
[2018-06-01] MEDS ORDERED: Lanolin 100% Cream 7 GM Tube TOP PRN (08:17)
[2018-06-01] MEDS ORDERED: Acetaminophen/oxyCODONE 325-5 MG Tab PO PRN (08:17)
[2018-06-01] MEDS ORDERED: Ketorolac 30 MG/ML SDV ONE (08:18)
--- NOTE | 2018-06-01 08:36 | PCM.OPNOTE ---
- General Post-Op/Procedure Note Date of Surgery/Procedure: 06/01/18 Operative Procedure(s): Repeat LTCS Findings: Barbara is a at 39.0 with a history of and pre-eclampsia in her last . She delivered a liveborn male at 07:52 with scores of 9/9 who weighed 3680 gm. The patient's uterus had moderate amount of adhesions from prior LTCS surgeries, including adhesions of the anterior uterine wall to the peritoneum. Lower uterine segment was relatively thick given her history. Pre Op Diagnosis: 39.0 wga IUP, prior section Post-Op Diagnosis: same Anesthesia Technique: Spinal Primary Surgeon: Grisel Peters Secondary Surgeon: Lyubov Sheriff ([id number]) Pathology: none Fluid Replacement, Intraop: 2,300 Output, Urine Amount: 100 EBL in mLs: 500 Complications: None known Condition: Good Free Text/Narrative:: see dictation by Dr. Peters
[2018-06-01] MEDS: Ketorolac 30 MG/ML SDV IVPUSH SCH ×3 (11:16→20:37)
[2018-06-01] MEDS: Ondansetron 4 MG/2 ML SDV IVPUSH PRN ×2 (11:29→16:14)
--- NOTE | 2018-06-01 14:29 | OR ---
SURGEON: Grisel Peters M.D. DATE OF PROCEDURE: 06/01/2018 PREOPERATIVE DIAGNOSES: 1. 39-week intrauterine . 2. Prior delivery. POSTOPERATIVE DIAGNOSES: 1. 39-week intrauterine . 2. Prior delivery. PROCEDURE: Repeat low-transverse section. KENNEL KEEPER: BURAK Capps. ANESTHESIA: Spinal. ESTIMATED BLOOD LOSS: 500 mL. FLUIDS: 1600 mL of crystalloid. FINDINGS: Liveborn male. scores 9 and 9, weighing 3680 g. Normal tubes and ovaries. The anterior uterus was adherent to the anterior abdominal wall on the peritoneum with dense adhesions that were lysed with electrocautery. COMPLICATIONS: None known. DISPOSITION: Mother and baby are in recovery in good condition. BRIEF HISTORY: This is a 33-year-old female. She is G2, P2 with 1 prior twin delivery due to preeclampsia at 36 weeks' gestation. She has had care complicated by labile blood pressures, but no evidence of preeclampsia, and she is presenting for a repeat section. She has had close interval monitoring of her blood pressures, and she has had no proteinuria, and therefore, she was allowed to complete 39 weeks' gestation. She presents for repeat low-transverse section, having declined vaginal trial of labor with risks having been discussed including bleeding; infection; injury to bowel, bladder, blood vessels, or other organs; risk of thromboembolic event; and risk of anesthesia. Understanding all these risks, she does desire to proceed. DESCRIPTION OF PROCEDURE: With the patient in left tilt position, under adequate spinal anesthesia, the abdomen was prepped with chlorhexidine and draped in the usual fashion for abdominal surgery. SCDs were in place. Buckley catheter had been placed and Ancef 2 g IV had been given. After an appropriate time-out was held and documentation of adequate analgesia, the prior cicatrix was excised and the transverse incision was carried through the subcutaneous tissue to the fascia, which was scored transversely in the midline. The fascial incision was extended laterally using curved Kimbrough scissors. The fascia was elevated from the underlying rectus muscle using sharp and blunt dissection. The rectus muscles were in the midline using a hemostat and the peritoneum was entered using sharp dissection. A finger was placed into the peritoneal cavity. There were adhesions anteriorly and cephalad as well as adhesions of the peritoneum to the lower uterine segment. The rectus muscles were using sharp dissection and a finger was placed behind the thick dense adhesions of the anterior uterus and electrocautery was used to release the uterus from the anterior abdominal wall. There was another more filmy adhesion on the right lower anterior uterus. With this being completed, I was able to lyse the filmy adhesions of the bladder between the bladder and the uterus with my finger. The Ryan O retractor was then placed. The visceroperitoneum over the lower uterine segment was incised to develop an adequate bladder flap. A transverse curvilinear incision was made over the lower uterine segment using a scalpel and a finger was used to enter the amniotic cavity. The incision was extended using blunt dissection. The amniotic membranes were ruptured using an Allis clamp. The head was delivered via the uterine incision using fundal pressure with subsequent delivery of the 's shoulders and body without any difficulty. The was bulb suctioned by nose and mouth. After the cord had ceased to pulsate, it was doubly clamped and cut, and the was handed to the nurse in attendance at delivery. The was a liveborn male, scores 9 and 9, weighing 3680 g. Cord blood was collected for cord ABGs as well as routine cord blood sampling. Pitocin was initiated after delivery of the to assist with delivery of the placenta, which was delivered with fundal massage. The uterus was then cleaned with a dry laparotomy tape. The cervix was opened with ring forceps. The uterine incision was closed with a running lock suture of 0 Polysorb followed by an imbricating layer of 0 Polysorb. Posterior cul-de-sac, pericolic gutters were cleaned with a wet laparotomy tape. Tubes and ovaries were inspected and were normal. The electrocautery was used to confirm complete hemostasis of the lysed adhesion, which was approximately 8 to 9 mm in thickness. The uterine incision was again inspected, was hemostatic. The Ryan O retractor was removed. The peritoneum and muscle were loosely approximated in midline using a running mattress suture of 0 Polysorb. The posterior aspect of the fascia was inspected and was hemostatic. The fascial incision was closed with a running suture of 0 Polysorb. Subcutaneous tissue was irrigated. Any areas of bleeding that were noted were cauterized. The skin was closed with a running subcuticular suture of 3-0 Monocryl followed by Dermabond. Final sponge, needle, and instrument counts were reported as correct. There were no known complications. The patient and were transferred to recovery in good condition. YAMIL FLOWERS /[id number]
[2018-06-01] MEDS: Docusate Sodium 100 MG Cap PO SCH ×2 (20:22→20:37)
[2018-06-02] MEDS: Ketorolac 30 MG/ML SDV IVPUSH SCH ×2 (02:11→08:57)
[2018-06-02] MEDS: Docusate Sodium 100 MG Cap PO SCH ×2 (08:54→20:10)
--- NOTE | 2018-06-02 08:54 | PCM.PNPP ---
- General Info Date of Service: 06/02/18 Admission Dx/Problem (Free Text): 39.0 wga IUP, repeat LTCS Subjective Update: Barbara is POD 1 for repeat LTCS. She notes to have increased pain this morning as her spinal wears off. She states her pain is a 4/10 at the most. Her catheter was removed this morning but she has not yet voided (been 3 hours only) . She notes no new symptoms and is ambulating without issue. Functional Status: Reports: Pain Controlled, Tolerating Diet, Ambulating - Review of Systems General: Reports: No Symptoms Pulmonary: Reports: No Symptoms Cardiovascular: Reports: No Symptoms Gastrointestinal: Reports: No Symptoms Genitourinary: Reports: No Symptoms Musculoskeletal: Reports: No Symptoms Skin: Reports: No Symptoms Neurological: Reports: No Symptoms Psychiatric: Reports: No Symptoms - General Info Date of Service: 06/02/18 - Patient Data Vital Signs - Most Recent: Last Vital Signs Temp 98.1 F 06/02/18 08:00 Pulse 85 06/02/18 08:00 Resp 16 06/02/18 08:00 BP 112/79 06/02/18 08:00 Pulse Ox 97 06/02/18 08:00 Weight - Most Recent: 236 lb I&O - Last 24 Hours: Intake & Output 06/01/18 06/02/18 06/02/18 22:59 06:59 14:59 Intake Total 1500 3268 Output Total 200 1850 Balance 1300 1418 Lab Results - Last 24 Hours: Laboratory Results - last 24 hr 06/02/18 Range/Units 05:47 Hgb 11.2 L (12.0-16.0) g/dL Hct 33.7 L (36.0-46.0) % Med Orders - Current: Current Medications Bisacodyl (Dulcolax) 10 mg RECTAL ONETIME PRN PRN Reason: Constipation Diphenhydramine HCl (Benadryl) 25 mg IVPUSH Q6H PRN PRN Reason: Itching or Nausea Docusate Sodium (Colace) 100 mg PO BID ADINA Last Admin: 06/01/18 20:37 Dose: 100 mg Emollient Ointment (Lansinoh Hpa) 0 gm TOP ASDIRECTED PRN PRN Reason: Sore Nipples Last Admin: 06/01/18 14:20 Dose: 1 tube Lactated Ringer's (Ringers, Lactated) 1,000 mls @ 125 mls/hr IV ASDIRECTED [facility] Last Admin: 06/01/18 16:38 Dose: 125 mls/hr Ibuprofen (Motrin) 800 mg PO Q8H PRN PRN Reason: mild pain or fever Ondansetron HCl (Zofran) 4 mg IVPUSH Q4H PRN PRN Reason: Nausea/Vomiting Last Admin: 06/01/18 16:14 Dose: 4 mg Oxycodone/Acetaminophen (Percocet 325-5 Mg) 1 tab PO Q4H PRN PRN Reason: Pain (moderate 4-6) Oxycodone/Acetaminophen (Percocet 325-5 Mg) 2 tab PO Q4H PRN PRN Reason: Pain (moderate 4-6) Discontinued Medications Cefazolin Sodium (Ancef) Confirm Administered Dose 2 gm .ROUTE .STK-MED ONE Stop: 06/01/18 06:45 Citric Acid/Sodium Citrate (Bicitra Solution) 30 ml PO ONETIME ONE Stop: 06/01/18 05:20 Last Admin: 06/01/18 07:23 Dose: 30 ml Diphenhydramine HCl (Benadryl) 25 mg IVPUSH Q4H PRN PRN Reason: Itching Stop: 06/02/18 07:41 Ephedrine Sulfate (Ephedrine Sulfate) Confirm Administered Dose 50 mg .ROUTE .STK-MED ONE Stop: 06/01/18 06:41 Cefazolin Sodium/Dextrose 2 gm (/ Premix) 50 mls @ 100 mls/hr IV ONETIME ONE Stop: 06/01/18 06:59 Lactated Ringer's (Ringers, Lactated) 1,000 mls @ 500 mls/hr IV BOLUS [facility] Last Admin: 06/01/18 07:23 Dose: 999 mls/hr Oxytocin/Sodium Chloride (Oxytocin 30 Unit/500 Ml-Ns) 30 unit in 500 mls @ 250 mls/hr IV TITRATE ADINA Oxytocin/Sodium Chloride (Oxytocin 30 Unit/500 Ml-Ns) Confirm Administered Dose 30 unit in 500 mls @ as directed .ROUTE .STK-MED ONE Stop: 06/01/18 06:41 Sodium Chloride (Normal Saline) Confirm Administered Dose 20 mls @ as directed .ROUTE .STK-MED ONE Stop: 06/01/18 06:45 Sodium Chloride (Normal Saline) Confirm Administered Dose 20 mls @ as directed .ROUTE .STK-MED ONE Stop: 06/01/18 06:46 Ketorolac Tromethamine (Toradol) Confirm Administered Dose 30 mg .ROUTE .STK- MED ONE Stop: 06/01/18 08:19 Ketorolac Tromethamine (Toradol) 30 mg IVPUSH Q6H ADINA Stop: 06/02/18 08:31 Last Admin: 06/02/18 02:11 Dose: 30 mg Morphine Sulfate (Duramorph Pf) Confirm Administered Dose 10 mg .ROUTE .STK-MED ONE Stop: 06/01/18 06:42 Nalbuphine HCl (Nubain) 5 mg IVPUSH Q3H PRN PRN Reason: Pruritis Stop: 06/02/18 07:41 Last Admin: 06/01/18 16:30 Dose: 5 mg Naloxone HCl (Narcan) 0.1 mg IVPUSH ONETIME PRN PRN Reason: Respiratory Depression Stop: 06/02/18 07:41 Octyl Cyanoacrylate (Dermabond Advance) Confirm Administered Dose 1 applic .ROUTE .STK-MED ONE Stop: 06/01/18 08:05 Ondansetron HCl (Zofran) Confirm Administered Dose 4 mg .ROUTE .STK-MED ONE Stop: 06/01/18 06:41 Sodium Chloride (Saline Flush) 10 ml FLUSH ASDIRECTED PRN PRN Reason: Keep Vein Open Sodium Chloride (Saline Flush) 2.5 ml FLUSH ASDIRECTED PRN PRN Reason: Keep Vein Open Sodium Chloride (Normal Saline) 10 ml IV ASDIRECTED PRN PRN Reason: IV Use - Interaction Infant Disposition, : [place] in Room with Family Interaction: Other (see below) ( sleeping in [place]) Infant Feeding: Attempted ; Nursed Fair/Poor Support Person: Significant Other - Recovery Exam Fundal Tone: Firm Fundal Level: 1 Fingerbreadths Below Umbilicus Fundal Placement: Midline Lochia Amount: Scant Lochia Color: Rubra/Red Perineum Description: Intact, Minimal Bruising/Swelling Episiotomy/Laceration: None Bladder Status: Nonpalpable Urinary Elimination: Not Voiding (catheter only removed 3 hours ago) - Exam General: Alert, Oriented HEENT: Pupils Equal, Pupils Reactive, EOMI, Mucous Membr. Moist/[place] Neck: Supple Lungs: Clear to Auscultation, Normal Respiratory Effort Cardiovascular: Regular Rate, Regular Rhythm GI/Abdominal Exam: Normal Bowel Sounds, Soft, Non-Tender, No Organomegaly, No Distention Extremities: Normal Inspection, Normal Range of Motion, Non-Tender, No Pedal Edema Skin: Warm, Dry, Intact Wound/Incisions: Healing Well Neurological: No New Focal Deficit Psy/Mental Status: Alert, Normal Affect, Normal Mood - Problem List & Annotations (1) delivery delivered SNOMED Code(s): 251855632 Code(s): O82 - ENCOUNTER FOR DELIVERY WITHOUT INDICATION Status: Acute Current Visit: Yes - Problem List Review Problem List Initiated/Reviewed/Updated: Yes - Assessment Assessment:: Barbara is POD 1 for repeat LTCS. Her vital signs are good and stable and labs are reassuring. Her pain is increasing some but she is switching from spinal to oral medications for pain control. She is improving overall. - Plan Plan:: continue /postoperative cares continue to ambulate watch for voiding status (if not voided by 6 hours, will have to replace catheter) continue with pain management with oral medications
--- NOTE | 2018-06-02 09:05 | PCM48HPAN ---
Post Anesthesia Note - EVALUATION WITHIN 48HRS OF ANESTHETIC Vital Signs in Normal Range: Yes Patient Participated in Evaluation: Yes Respiratory Function Stable: Yes Airway Patent: Yes Cardiovascular Function Stable: Yes Hydration Status Stable: Yes Pain Control Satisfactory: Yes Nausea and Vomiting Control Satisfactory: Yes Mental Status Recovered: Yes Resp Rate: 16 - COMMENTS/OBSERVATIONS Free Text/Narrative:: Pt states some nausea yesterday, but treated with PRN medication that helped. Doing well this am with no complaints. No apparent anesthesia complications.
[2018-06-02] MEDS: Acetaminophen/oxyCODONE 325-5 MG Tab PO PRN ×2 (12:56→19:56)
[2018-06-02] MEDS: Ibuprofen 800 MG Tab PO PRN (15:28)
[2018-06-03] MEDS: Acetaminophen/oxyCODONE 325-5 MG Tab PO PRN ×3 (00:10→13:20)
[2018-06-03] MEDS: Ibuprofen 800 MG Tab PO PRN ×2 (00:10→08:00)
[2018-06-03] MEDS: Docusate Sodium 100 MG Cap PO SCH (07:59)
[2018-06-03 08:27] VITALS: BP 109/82
--- NOTE | 2018-06-03 08:29 | PCM.PNPP ---
<Lyubov Sheriff - Last Filed: 06/03/18 08:25> - General Info Date of Service: 06/03/18 Admission Dx/Problem (Free Text): 39.0 wga IUP, repeat LTCS Subjective Update: Barbara is POD 2 for repeat LTCS. She notes that her pain is a 5/10 at the worst but is well controlled with oral pain medications. She states no new symptoms and feels well enough to be discharged to home today. Functional Status: Reports: Pain Controlled, Tolerating Diet, Ambulating, Urinating Pain Score: 5 - Review of Systems General: Reports: No Symptoms Pulmonary: Reports: No Symptoms Cardiovascular: Reports: No Symptoms Gastrointestinal: Reports: No Symptoms Genitourinary: Reports: No Symptoms Musculoskeletal: Reports: No Symptoms Skin: Reports: No Symptoms Neurological: Reports: No Symptoms Psychiatric: Reports: No Symptoms - General Info Date of Service: 06/03/18 - Patient Data Vital Signs - Most Recent: Last Vital Signs Temp 97 F 06/03/18 05:08 Pulse 82 06/03/18 05:08 Resp 16 06/03/18 05:08 BP 127/81 06/03/18 05:08 Pulse Ox 96 06/03/18 05:08 Weight - Most Recent: 107.048 kg Med Orders - Current: Current Medications Bisacodyl (Dulcolax) 10 mg RECTAL ONETIME PRN PRN Reason: Constipation Diphenhydramine HCl (Benadryl) 25 mg IVPUSH Q6H PRN PRN Reason: Itching or Nausea Docusate Sodium (Colace) 100 mg PO BID [facility] Last Admin: 06/03/18 07:59 Dose: 100 mg Emollient Ointment (Lansinoh Hpa) 0 gm TOP ASDIRECTED PRN PRN Reason: Sore Nipples Last Admin: 06/01/18 14:20 Dose: 1 tube Lactated Ringer's (Ringers, Lactated) 1,000 mls @ 125 mls/hr IV ASDIRECTED [facility] Last Admin: 06/01/18 16:38 Dose: 125 mls/hr Ibuprofen (Motrin) 800 mg PO Q8H PRN PRN Reason: mild pain or fever Last Admin: 06/03/18 08:00 Dose: 800 mg Ondansetron HCl (Zofran) 4 mg IVPUSH Q4H PRN PRN Reason: Nausea/Vomiting Last Admin: 06/01/18 16:14 Dose: 4 mg Oxycodone/Acetaminophen (Percocet 325-5 Mg) 1 tab PO Q4H PRN PRN Reason: Pain (moderate 4-6) Last Admin: 06/03/18 06:05 Dose: 1 tab Oxycodone/Acetaminophen (Percocet 325-5 Mg) 2 tab PO Q4H PRN PRN Reason: Pain (moderate 4-6) Discontinued Medications Cefazolin Sodium (Ancef) Confirm Administered Dose 2 gm .ROUTE .STK-MED ONE Stop: 06/01/18 06:45 Citric Acid/Sodium Citrate (Bicitra Solution) 30 ml PO ONETIME ONE Stop: 06/01/18 05:20 Last Admin: 06/01/18 07:23 Dose: 30 ml Diphenhydramine HCl (Benadryl) 25 mg IVPUSH Q4H PRN PRN Reason: Itching Stop: 06/02/18 07:41 Ephedrine Sulfate (Ephedrine Sulfate) Confirm Administered Dose 50 mg .ROUTE .STK-MED ONE Stop: 06/01/18 06:41 Cefazolin Sodium/Dextrose 2 gm (/ Premix) 50 mls @ 100 mls/hr IV ONETIME ONE Stop: 06/01/18 06:59 Lactated Ringer's (Ringers, Lactated) 1,000 mls @ 500 mls/hr IV BOLUS ADINA Last Admin: 06/01/18 07:23 Dose: 999 mls/hr Oxytocin/Sodium Chloride (Oxytocin 30 Unit/500 Ml-Ns) 30 unit in 500 mls @ 250 mls/hr IV TITRATE ADINA Oxytocin/Sodium Chloride (Oxytocin 30 Unit/500 Ml-Ns) Confirm Administered Dose 30 unit in 500 mls @ as directed .ROUTE .STK-MED ONE Stop: 06/01/18 06:41 Sodium Chloride (Normal Saline) Confirm Administered Dose 20 mls @ as directed .ROUTE .STK-MED ONE Stop: 06/01/18 06:45 Sodium Chloride (Normal Saline) Confirm Administered Dose 20 mls @ as directed .ROUTE .STK-MED ONE Stop: 06/01/18 06:46 Ketorolac Tromethamine (Toradol) Confirm Administered Dose 30 mg .ROUTE .STK- MED ONE Stop: 06/01/18 08:19 Ketorolac Tromethamine (Toradol) 30 mg IVPUSH Q6H [facility] Stop: 06/02/18 08:31 Last Admin: 06/02/18 08:57 Dose: 30 mg Morphine Sulfate (Duramorph Pf) Confirm Administered Dose 10 mg .ROUTE .STK-MED ONE Stop: 06/01/18 06:42 Nalbuphine HCl (Nubain) 5 mg IVPUSH Q3H PRN PRN Reason: Pruritis Stop: 06/02/18 07:41 Last Admin: 06/01/18 16:30 Dose: 5 mg Naloxone HCl (Narcan) 0.1 mg IVPUSH ONETIME PRN PRN Reason: Respiratory Depression Stop: 06/02/18 07:41 Octyl Cyanoacrylate (Dermabond Advance) Confirm Administered Dose 1 applic .ROUTE .STK-MED ONE Stop: 06/01/18 08:05 Ondansetron HCl (Zofran) Confirm Administered Dose 4 mg .ROUTE .STK-MED ONE Stop: 06/01/18 06:41 Sodium Chloride (Saline Flush) 10 ml FLUSH ASDIRECTED PRN PRN Reason: Keep Vein Open Sodium Chloride (Saline Flush) 2.5 ml FLUSH ASDIRECTED PRN PRN Reason: Keep Vein Open Sodium Chloride (Normal Saline) 10 ml IV ASDIRECTED PRN PRN Reason: IV Use - Interaction Disposition, : in Room with Family Interaction: Holding Infant Infant Feeding: Breastfed Infant; Nursed Well Support Person: Significant Other - Recovery Exam Fundal Tone: Firm Fundal Level: 1 Fingerbreadths Below Umbilicus Fundal Placement: Midline Lochia Amount: Scant Lochia Color: Rubra/Red Perineum Description: Intact, Minimal Bruising/Swelling Episiotomy/Laceration: None Bladder Status: Voiding Urinary Elimination: Voided - Exam General: Alert, Oriented HEENT: Pupils Equal, Pupils Reactive, EOMI, Mucous Membr. Moist/[place] Neck: Supple Lungs: Clear to Auscultation, Normal Respiratory Effort Cardiovascular: Regular Rate, Regular Rhythm GI/Abdominal Exam: Normal Bowel Sounds, Soft, Non-Tender, No Organomegaly, No Distention Extremities: Normal Inspection, Normal Range of Motion, Non-Tender, No Pedal Edema Skin: Warm, Dry, Intact Wound/Incisions: Healing Well Neurological: No New Focal Deficit Psy/Mental Status: Alert, Normal Affect, Normal Mood - Problem List & Annotations (1) delivery delivered SNOMED Code(s): 704795647 Code(s): O82 - ENCOUNTER FOR DELIVERY WITHOUT INDICATION Status: Acute Current Visit: Yes - Problem List Review Problem List Initiated/Reviewed/Updated: Yes - Assessment Assessment:: Barbara is POD 2 for repeat LTCS. Labs from yesterday are reassuring, vital signs remain good and stable. Patient improving and to be discharged to home today if remains well/improves. - Plan Plan:: continue /postoperative cares discharge to home today continue pain management with oral medications <Grisel Peters - Last Filed: 06/03/18 09:42> - Patient Data Vital Signs - Most Recent: Last Vital Signs Temp 36.1 C 06/03/18 08:00 Pulse 80 06/03/18 08:00 Resp 17 06/03/18 08:00 BP 109/82 06/03/18 08:00 Pulse Ox 97 06/03/18 08:00 Med Orders - Current: Current Medications Bisacodyl (Dulcolax) 10 mg RECTAL ONETIME PRN PRN Reason: Constipation Diphenhydramine HCl (Benadryl) 25 mg IVPUSH Q6H PRN PRN Reason: Itching or Nausea Docusate Sodium (Colace) 100 mg PO BID [facility] Last Admin: 06/03/18 07:59 Dose: 100 mg Emollient Ointment (Lansinoh Hpa) 0 gm TOP ASDIRECTED PRN PRN Reason: Sore Nipples Last Admin: 06/01/18 14:20 Dose: 1 tube Lactated Ringer's (Ringers, Lactated) 1,000 mls @ 125 mls/hr IV ASDIRECTED [facility] Last Admin: 06/01/18 16:38 Dose: 125 mls/hr Ibuprofen (Motrin) 800 mg PO Q8H PRN PRN Reason: mild pain or fever Last Admin: 06/03/18 08:00 Dose: 800 mg Ondansetron HCl (Zofran) 4 mg IVPUSH Q4H PRN PRN Reason: Nausea/Vomiting Last Admin: 06/01/18 16:14 Dose: 4 mg Oxycodone/Acetaminophen (Percocet 325-5 Mg) 1 tab PO Q4H PRN PRN Reason: Pain (moderate 4-6) Last Admin: 06/03/18 06:05 Dose: 1 tab Oxycodone/Acetaminophen (Percocet 325-5 Mg) 2 tab PO Q4H PRN PRN Reason: Pain (moderate 4-6) Discontinued Medications Cefazolin Sodium (Ancef) Confirm Administered Dose 2 gm .ROUTE .STK-MED ONE Stop: 06/01/18 06:45 Citric Acid/Sodium Citrate (Bicitra Solution) 30 ml PO ONETIME ONE Stop: 06/01/18 05:20 Last Admin: 06/01/18 07:23 Dose: 30 ml Diphenhydramine HCl (Benadryl) 25 mg IVPUSH Q4H PRN PRN Reason: Itching Stop: 06/02/18 07:41 Ephedrine Sulfate (Ephedrine Sulfate) Confirm Administered Dose 50 mg .ROUTE .STK-MED ONE Stop: 06/01/18 06:41 Cefazolin Sodium/Dextrose 2 gm (/ Premix) 50 mls @ 100 mls/hr IV ONETIME ONE Stop: 06/01/18 06:59 Lactated Ringer's (Ringers, Lactated) 1,000 mls @ 500 mls/hr IV BOLUS [facility] Last Admin: 06/01/18 07:23 Dose: 999 mls/hr Oxytocin/Sodium Chloride (Oxytocin 30 Unit/500 Ml-Ns) 30 unit in 500 mls @ 250 mls/hr IV TITRATE ADINA Oxytocin/Sodium Chloride (Oxytocin 30 Unit/500 Ml-Ns) Confirm Administered Dose 30 unit in 500 mls @ as directed .ROUTE .STK-MED ONE Stop: 06/01/18 06:41 Sodium Chloride (Normal Saline) Confirm Administered Dose 20 mls @ as directed .ROUTE .STK-MED ONE Stop: 06/01/18 06:45 Sodium Chloride (Normal Saline) Confirm Administered Dose 20 mls @ as directed .ROUTE .STK-MED ONE Stop: 06/01/18 06:46 Ketorolac Tromethamine (Toradol) Confirm Administered Dose 30 mg .ROUTE .STK- MED ONE Stop: 06/01/18 08:19 Ketorolac Tromethamine (Toradol) 30 mg IVPUSH Q6H [facility] Stop: 06/02/18 08:31 Last Admin: 06/02/18 08:57 Dose: 30 mg Morphine Sulfate (Duramorph Pf) Confirm Administered Dose 10 mg .ROUTE .STK-MED ONE Stop: 06/01/18 06:42 Nalbuphine HCl (Nubain) 5 mg IVPUSH Q3H PRN PRN Reason: Pruritis Stop: 06/02/18 07:41 Last Admin: 06/01/18 16:30 Dose: 5 mg Naloxone HCl (Narcan) 0.1 mg IVPUSH ONETIME PRN PRN Reason: Respiratory Depression Stop: 06/02/18 07:41 Octyl Cyanoacrylate (Dermabond Advance) Confirm Administered Dose 1 applic .ROUTE .STK-MED ONE Stop: 06/01/18 08:05 Ondansetron HCl (Zofran) Confirm Administered Dose 4 mg .ROUTE .STK-MED ONE Stop: 06/01/18 06:41 Sodium Chloride (Saline Flush) 10 ml FLUSH ASDIRECTED PRN PRN Reason: Keep Vein Open Sodium Chloride (Saline Flush) 2.5 ml FLUSH ASDIRECTED PRN PRN Reason: Keep Vein Open Sodium Chloride (Normal Saline) 10 ml IV ASDIRECTED PRN PRN Reason: IV Use - Problem List & Annotations (1) delivery delivered SNOMED Code(s): 390615044 Code(s): O82 - ENCOUNTER FOR DELIVERY WITHOUT INDICATION Status: Acute Current Visit: Yes - Problem List Review Problem List Initiated/Reviewed/Updated: Yes - Assessment Assessment:: Patient was seen and examined by me and I agree with above
== END 2018-06-03 13:25 | disposition home or self-care (01) | DRG 540 ==
LOC: MW.OB 05:16
PROVIDERS: ADMIT Obstetrics & Gynecology; ATTEND Obstetrics & Gynecology
PROC: 6A550ZT Pheresis of Cord Blood Stem Cells, Single (ICD-10-PCS; principal; 2018-06-01)
PROC: 10D00Z1 Extraction of Products of Conception, Low, Open Approach (ICD-10-PCS; principal; 2018-06-01)
DX: O34.211 Maternal care for low transverse scar from previous cesarean delivery (principal); N85.8 Other specified noninflammatory disorders of uterus; O99.214 Obesity complicating childbirth; E66.9 Obesity, unspecified; Z3A.39 39 weeks gestation of pregnancy; Z37.0 Single live birth; O13.4 Gestational [pregnancy-induced] hypertension without significant proteinuria, complicating childbirth; O99.62 Diseases of the digestive system complicating childbirth; K21.9 Gastro-esophageal reflux disease without esophagitis; Z79.82 Long term (current) use of aspirin
CPT/HCPCS: 36415; 59025; 82803; 85014; 85018; 85027; 86850; 86900; 86901; A9270-GY; J0690; J1885; J2270; J2300; J2405; J2590; J7120